=== PATIENT | female | born 1970 | race Caucasian/White ===

== ENCOUNTER 2016-04-08 06:40 | Day surgery (SDC) | payer BC ==
[2016-04-08] MEDS ORDERED: Cyanocobalamin (Vitamin B12) 1,000 MCG/ML SDV IM ONE (07:15)
[2016-04-08] MEDS ORDERED: Lactated Ringers 1,000 ML IV SCH (07:15)
[2016-04-08] MEDS ORDERED: fentaNYL 100 MCG/2 ML SDV ONE (07:24)
[2016-04-08] MEDS ORDERED: Propofol 200 MG/20 ML SDV ONE (07:24)
[2016-04-08] MEDS ORDERED: Midazolam 1 MG/ML 2 ML SDV ONE (07:24)
[2016-04-08] MEDS ORDERED: Glycopyrrolate 0.2 MG/ML 2 ML SYRINGE IVPUSH ONE (07:30)
[2016-04-08] MEDS ORDERED: MVI, Adult with Vitamin K 10 ML, Thiamine 200 MG, Chromium/Copper/Mang/Selen/Zn 1 ML in... IV ONE ×4 (08:15)
[2016-04-08] MEDS ORDERED: Scopolamine 1.5 MG Transdermal Patch TOP SCH (08:25)
[2016-04-08 10:37] VITALS: BP 132/82
--- NOTE | 2016-04-16 09:35 | OR ---
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 POSTOPERATIVE DIAGNOSIS: Moderate stricture at gastrojejunostomy. OPERATIVE PROCEDURE: Upper gastrointestinal endoscopy with dilation gastrojejunostomy (60368). ANESTHESIA: IV sedation. INDICATION FOR PROCEDURE: The patient has developed recurrent problem of stricturing at her gastrojejunostomy, status post revision of Ky-en-Y gastric bypass. Plan is to proceed with upper GI endoscopy with dilation as indicated. Potential risks including bleeding and perforation were discussed, and the patient wishes to proceed. DETAILS OF PROCEDURE: The patient was taken to the operating room and placed in a left lateral decubitus position. IV sedation was administered, after which the upper GI endoscope was passed orally through the length of the esophagus and into the gastric pouch. No retained food or fluid was noted. The patient was noted to have moderate stricturing of the gastrojejunostomy with estimated diameter around 9 mm. There was a degree of inflammation noted. There was only a small area that has fibrinous exudate on its surface within the area of the gastrojejunostomy. A Bard gastrointestinal balloon catheter was centered across the anastomosis and inflated to 36-Serbian size. This was held in position for 1 minute, after which the balloon catheter was deflated and withdrawn. The scope could easily then be passed through the anastomosis. No complications were noted and the procedure was concluded. The patient was taken to the recovery room in satisfactory condition. Tim Carroll MD /[id number]
== END 2016-04-08 11:10 | disposition home or self-care (01) ==
LOC: JP.SDS 06:40
PROVIDERS: ATTEND Surgery
DX: K91.89 Other postprocedural complications and disorders of digestive system (principal); Z88.1 Allergy status to other antibiotic agents; Z88.8 Allergy status to other drugs, medicaments and biological substances
CPT/HCPCS: 36415; 43245; 80048; 82728; 83735; 84100; A9270; J2250; J2704; J3010; J3411; J3420; J7120

== ENCOUNTER → 2016-04-15 | Day surgery (SDC) | payer BC ==
[~2016-04-15] MED LIST: Bupivacaine 0.5% 50 ML MDV ONE; Cyanocobalamin (Vitamin B12) 1,000 MCG/ML SDV IM ONE; Glycopyrrolate 0.2 MG/ML 2 ML SYRINGE IVPUSH ONE; LORazepam 0.5 MG Tab PO ONE; Lactated Ringers 1,000 ML IV SCH; Lidocaine 1% with EPINEPHrine 1:100,000 50 ML MDV ONE; MVI, Adult with Vitamin K 10 ML, Thiamine 200 MG, Chromium/Copper/Mang/Selen/Zn 1 ML in... IV ONE; Midazolam 1 MG/ML 2 ML SDV ONE; Propofol 200 MG/20 ML SDV ONE; fentaNYL 100 MCG/2 ML SDV ONE
[2016-04-15 12:17] VITALS: BP 137/69
--- NOTE | 2016-04-19 11:14 | OR ---
DATE OF PROCEDURE: 04/15/2016 PREOPERATIVE DIAGNOSIS: Probable strictured gastrojejunostomy. POSTOPERATIVE DIAGNOSES: 1. Probable strictured gastrojejunostomy. 2. Limited peripheral venous access. OPERATIVE PROCEDURE: 1. Upper GI endoscopy with dilation of gastrojejunostomy (76047). 2. Placement of double-lumen Rivera catheter via left subclavian vein approach (85522). ANESTHESIA: Local plus IV sedation. INDICATION FOR PROCEDURE: This is a 45-year-old who has been afflicted with multiple strictures following the gastrojejunostomy. Plan is to proceed with the upper GI endoscopy with dilation as indicated. She is also at this point having very difficult problems with peripheral venous access. A Rivera catheter will be placed. Potential risks including bleeding, infection, perforation of the dilation site with no pneumothorax or occlusion or infection the Rivera catheter were all gone over, and the patient wishes to proceed. DETAILS OF PROCEDURE: The patient was taken to the operating room and placed in a supine position. After IV sedation was administered, the upper chest and neck areas were prepped and draped, and the left subclavian vein area anesthetized with 1% lidocaine, mixed with Marcaine. The left subclavian vein was cannulated, and a guidewire passed and manipulated into the superior vena cava. Some additional local anesthetic was then injected a handsbreadth below the original puncture site and in between those two levels. A stab wound was then placed at the puncture site as well as the lower end of the anesthetized area and the chest wall, and a Rivera catheter was then tunneled between those 2 locations and introduced a peel-away catheter. The Rivera catheter was placed after it had been measured such that it would lie in the area of the right atrium. This was positioned without difficulty. Good location was confirmed fluoroscopically. The catheter was sutured to the skin level with 3-0 nylon stitch. Position of the fibrous button just inside the skin puncture site and the regional needle puncture site was closed with a subcuticular 4-0 Vicryl stitch, and a Steri-Strip was applied there. Dressing was then placed over the Rivera catheter after the ports had been flushed once again with heparinized saline. Attention was taken to the upper GI endoscopy. The upper GI endoscope was passed orally through the length of the esophagus and down into the area of the gastrojejunostomy. This was mildly strictured. A Bard gastrointestinal catheter was then centered across the anastomosis and inflated to 36-Sinhala size. This was held in position for 1 minute after which the balloon catheter was deflated and withdrawn, and the procedure was then concluded. The patient was taken to the recovery room in satisfactory condition. The patient continues to have problems with nausea, but on Friday, she was started on some Ativan 1 mg to be taken q.i.d. This has helped nausea quite a bit, but she is feeling a little bit too sleepy, and given this, we will have her split the dose to 0.5 and see if that controls the nausea without the sedation. The plan will be to see the patient back this coming Friday and most likely proceed with upper GI endoscopy and dilation. At that time, as I will be out of town for subsequent 8 or 9 days after that. Tim Carroll MD /[id number]
== END ==
LOC: JP.SDS 07:37
PROVIDERS: ATTEND Surgery
DX: K91.89 Other postprocedural complications and disorders of digestive system (principal)
CPT/HCPCS: 36558; 43245; A9270; J1642; J2250; J2704; J3010; J3411; J3420; J7120

== ENCOUNTER 2016-04-20 06:27 | Day surgery (SDC) | payer BC ==
[2016-04-20] MEDS ORDERED: fentaNYL 100 MCG/2 ML SDV ONE (07:29)
[2016-04-20] MEDS ORDERED: Midazolam 1 MG/ML 2 ML SDV ONE (07:29)
[2016-04-20] MEDS ORDERED: Propofol 200 MG/20 ML SDV ONE (07:29)
[2016-04-20] MEDS ORDERED: Lactated Ringers 1,000 ML IV SCH (07:30)
[2016-04-20] MEDS ORDERED: Cyanocobalamin (Vitamin B12) 1,000 MCG/ML SDV IM ONE (07:30)
[2016-04-20] MEDS ORDERED: Glycopyrrolate 0.2 MG/ML 2 ML SYRINGE IVPUSH ONE (07:45)
[2016-04-20] MEDS ORDERED: MVI, Adult with Vitamin K 10 ML, Thiamine 200 MG, Chromium/Copper/Mang/Selen/Zn 1 ML in... IV ONE ×4 (09:00)
[2016-04-20 09:11] VITALS: BP 158/89
[2016-04-20] MEDS: Sodium Chloride 0.9% 10 ML Syringe FLUSH PRN ×2 (09:14→09:16)
--- NOTE | 2016-04-22 09:12 | OR ---
DATE OF PROCEDURE: 04/20/2016 PREOPERATIVE DIAGNOSIS: Probable stricture at gastrojejunostomy. POSTOPERATIVE DIAGNOSIS: Stricture at gastrojejunostomy. OPERATIVE PROCEDURE: Upper GI endoscopy with dilation of gastrojejunostomy (30162). ANESTHESIA: IV sedation. INDICATION FOR PROCEDURE: This is a 45-year-old presenting with ongoing stricturing at her gastrojejunostomy. Plan is to proceed with upper GI endoscopy with dilation as indicated. Potential risks including bleeding and perforation were discussed, and the patient wishes to proceed. DETAILS OF PROCEDURE: The patient was taken to the operating room and placed in a left lateral decubitus position. IV sedation was administered after which the upper GI endoscope was passed orally through the length of the esophagus and into the area of the anastomosis. The area was strictured enough that the 1 cm scope would not quite pass through the area. A Bard gastrointestinal balloon catheter was centered across the anastomosis and inflated to 36-Burundian size, was held in position for 1 minute, after which the balloon catheter was deflated and withdrawn. The scope could easily then be passed through the anastomosis. No complications were noted and the procedure was concluded. The patient was taken to the recovery room in satisfactory condition. Tim Carroll MD /[id number]
== END 2016-04-20 09:25 | disposition home or self-care (01) ==
LOC: JP.SDS 06:27
PROVIDERS: ATTEND Surgery
DX: K91.89 Other postprocedural complications and disorders of digestive system (principal); Z88.1 Allergy status to other antibiotic agents; Z88.8 Allergy status to other drugs, medicaments and biological substances
CPT/HCPCS: 43245; J1642; J2250; J2704; J3010; J3411; J3420; J7050; J7120

== ENCOUNTER 2016-04-29 10:50 | Day surgery (SDC) | payer BC ==
[2016-04-29] MEDS ORDERED: Heparin Sodium 5,000 Units/ML Vial IVPUSH PRN (11:14)
[2016-04-29] MEDS ORDERED: Lactated Ringers 1,000 ML IV ONE (11:15)
[2016-04-29] MEDS ORDERED: Midazolam 1 MG/ML 2 ML SDV ONE (11:46)
[2016-04-29] MEDS ORDERED: fentaNYL 100 MCG/2 ML SDV ONE (11:46)
[2016-04-29] MEDS ORDERED: Propofol 200 MG/20 ML SDV ONE (11:46)
[2016-04-29] MEDS ORDERED: Glycopyrrolate 0.2 MG/ML 2 ML SYRINGE IVPUSH ONE (12:00)
[2016-04-29] MEDS ORDERED: Cyanocobalamin (Vitamin B12) 1,000 MCG/ML SDV IM ONE (12:00)
[2016-04-29] MEDS ORDERED: Prochlorperazine 10 MG/2 ML SDV IVPUSH ONE (12:00)
[2016-04-29] MEDS ORDERED: MVI, Adult with Vitamin K 10 ML, Thiamine 200 MG, Chromium/Copper/Mang/Selen/Zn 1 ML in... IV ONE ×4 (12:30)
[2016-04-29] MEDS: Potassium Chloride 20 MEQ in Premix Bag 1 BAG IV SCH ×4 (12:41→16:01)
[2016-04-29 17:35] VITALS: BP 138/74
[2016-04-29] MEDS ORDERED: Potassium Phosphates 20 MMOLE in Sodium Chloride 0.9% 250 ML IV ONE (18:45)
--- NOTE | 2016-05-03 08:00 | OR ---
DATE OF PROCEDURE: 04/29/2016 PREOPERATIVE DIAGNOSIS: Probable stricture of gastrojejunostomy. POSTOPERATIVE DIAGNOSIS: Moderate stricture of gastrojejunostomy with progressively decreased inflammation. OPERATIVE PROCEDURE: Upper GI endoscopy with dilation of gastrojejunostomy (89061). ANESTHESIA: IV sedation. INDICATION FOR PROCEDURE: The patient had some persistent problems with stricturing at her gastrojejunostomy post high gastrectomy. Plan is to proceed with an upper GI endoscopy with dilation as indicated. Potential risks including bleeding and perforation were discussed, and the patient wishes to proceed. DETAILS OF PROCEDURE: The patient was taken to the operating room and placed in a left lateral decubitus position. IV sedation was administered, after which the upper GI endoscope was passed orally through the length of the esophagus and into the area of the gastrojejunostomy. This was noted to be narrowed enough that the scope could quite not be passed through the anastomosis. There was quite a bit less inflammation than we had seen previously. A Bard gastrointestinal balloon catheter was then centered across the anastomosis with fluoroscopic surveillance, inflated to 36-Cameroonian size, held in position for 1 minute, after which the balloon catheter was deflated and withdrawn. The scope could easily then be passed through the anastomosis. No complications were noted. The scope was withdrawn. The patient was taken to the recovery room in satisfactory condition. The patient's potassium and phosphate are both noted to be quite low today and she will be given a combination of KCl and K-Phos postoperatively to restore those levels. We will empirically set her up for next Friday for repeat endoscopy to stay ahead of the issue as well as rechecking labs at that time. Tim Carroll MD /[id number]
== END 2016-04-29 21:14 | disposition home or self-care (01) ==
LOC: JP.SDS 10:50
PROVIDERS: ATTEND Surgery
DX: K91.89 Other postprocedural complications and disorders of digestive system (principal); G47.33 Obstructive sleep apnea (adult) (pediatric); Z88.1 Allergy status to other antibiotic agents; Z88.8 Allergy status to other drugs, medicaments and biological substances
CPT/HCPCS: 36415; 43245; 80053; 83735; 84100; 85027; J0780; J1642; J2250; J2704; J3010; J3411; J3420; J3480; J7050; J7120; J3490

== ENCOUNTER 2016-05-08 06:25 | Day surgery (SDC) | payer BC ==
[2016-05-08] MEDS ORDERED: Cyanocobalamin (Vitamin B12) 1,000 MCG/ML SDV IM ONE (07:30)
[2016-05-08] MEDS ORDERED: Lactated Ringers 1,000 ML IV SCH (07:30)
[2016-05-08] MEDS ORDERED: Glycopyrrolate 0.2 MG/ML 2 ML SYRINGE IVPUSH ONE (07:30)
[2016-05-08] MEDS ORDERED: MVI, Adult with Vitamin K 10 ML, Thiamine 200 MG, Chromium/Copper/Mang/Selen/Zn 1 ML in... IV ONE ×4 (07:30)
[2016-05-08] MEDS ORDERED: Propofol 200 MG/20 ML SDV ONE (07:52)
[2016-05-08] MEDS: Sodium Chloride 0.9% 10 ML Syringe FLUSH PRN ×2 (07:52→09:49)
[2016-05-08] MEDS ORDERED: Midazolam 1 MG/ML 2 ML SDV ONE (07:53)
[2016-05-08] MEDS ORDERED: fentaNYL 100 MCG/2 ML SDV ONE (07:53)
[2016-05-08 09:46] VITALS: BP 147/80
--- NOTE | 2016-05-09 17:37 | OR ---
DATE OF PROCEDURE: 05/08/2016 PREOPERATIVE DIAGNOSIS: Probable stricturing at the gastrojejunostomy. POSTOPERATIVE DIAGNOSIS: Moderate stricture gastrojejunostomy. OPERATIVE PROCEDURE: Upper gastrointestinal endoscopy with dilation gastrojejunostomy (49133). ANESTHESIA: IV sedation. INDICATION FOR PROCEDURE: The patient presents once again with symptoms suggestive of stricturing at her gastrojejunostomy. Plan is to proceed with upper GI endoscopy with dilation as indicated. Potential risks including bleeding and perforation were discussed, and the patient wishes to proceed. DETAILS OF PROCEDURE: The patient was taken to the operating room and placed in a left lateral decubitus position. IV sedation was administered, after which the upper GI endoscope was passed orally through the esophagus and into the gastric pouch. No retained food or fluid was noted. The patient noted to have some recurring stricturing at the gastrojejunostomy. This was without much in way of gross inflammation, however, at this point initially a 36-Albanian balloon catheter placed across the anastomosis. This resulted in some modest improvement in the diameter. Given this, the scope now comfortably passed into the jejunum. A 45-Albanian balloon was inflated to level one and this was 30 PSI and held in this position for one minute as well. This did result in a significantly improved diameter, and the scope was then withdrawn and the above findings reconfirmed. No evident complications were noted. We will empirically schedule the patient next Friday for repeat dilation just to see if we can stay out of the situation at this time. Tim Carroll MD /[id number]
== END 2016-05-08 10:00 | disposition home or self-care (01) ==
LOC: JP.SDS 06:25
PROVIDERS: ATTEND Surgery
DX: K91.89 Other postprocedural complications and disorders of digestive system (principal); K21.9 Gastro-esophageal reflux disease without esophagitis; F32.9 Major depressive disorder, single episode, unspecified; E66.9 Obesity, unspecified; G47.33 Obstructive sleep apnea (adult) (pediatric); Z88.1 Allergy status to other antibiotic agents; Z88.8 Allergy status to other drugs, medicaments and biological substances
CPT/HCPCS: 36415; 43245; 80048; 83735; 84100; J1642; J2250; J2704; J3010; J3411; J3420; J7050; J7120

== ENCOUNTER 2016-05-13 06:53 | Day surgery (SDC) | payer BC ==
[2016-05-13] MEDS ORDERED: Prochlorperazine 10 MG/2 ML SDV IVPUSH ONE (07:12)
[2016-05-13] MEDS ORDERED: Midazolam 1 MG/ML 2 ML SDV ONE (07:23)
[2016-05-13] MEDS ORDERED: Propofol 200 MG/20 ML SDV ONE (07:23)
[2016-05-13] MEDS ORDERED: fentaNYL 100 MCG/2 ML SDV ONE (07:23)
[2016-05-13] MEDS ORDERED: Lactated Ringers 1,000 ML IV SCH (07:30)
[2016-05-13] MEDS: Potassium Acetate 20 MEQ, Lidocaine 1% 2 ML in Sodium Chloride 0.9% 100 ML IV SCH ×3 (07:46→12:23)
[2016-05-13] MEDS ORDERED: Cyanocobalamin (Vitamin B12) 1,000 MCG/ML SDV IM ONE (08:00)
[2016-05-13] MEDS ORDERED: Glycopyrrolate 0.2 MG/ML 2 ML SYRINGE IVPUSH ONE (08:15)
[2016-05-13] MEDS ORDERED: MVI, Adult with Vitamin K 10 ML, Thiamine 200 MG, Chromium/Copper/Mang/Selen/Zn 1 ML in... IV ONE ×8 (08:30→10:00)
[2016-05-13 14:31] VITALS: BP 119/66
--- NOTE | 2016-05-16 13:05 | OR ---
DATE OF PROCEDURE: 05/13/2016 PREOPERATIVE DIAGNOSIS: Probable stricturing at gastrojejunostomy. POSTOPERATIVE DIAGNOSIS: Mild strictured gastrojejunostomy. OPERATIVE PROCEDURE: Upper GI endoscopy with dilation of gastrojejunostomy (49600). ANESTHESIA: IV sedation. INDICATIONS: The patient presents once again with some symptoms of stricturing at her gastrojejunostomy. Plan is to proceed with an upper GI endoscopy with dilation as indicated. Potential risks including bleeding and perforation were discussed, and the patient wishes to proceed. DETAILS OF PROCEDURE: The patient was taken to the operating room and placed in a left lateral decubitus position. IV sedation was administered, after which the upper GI endoscope was passed orally through the length of the esophagus into the gastric pouch. The patient had noted minimal inflammation at the gastrojejunostomy, and at this time, the scope could be passed through that area with minimal resistance, indicating an anastomotic diameter around 1 cm. A ItsOn gastrointestinal balloon catheter was then centered across the anastomosis and inflated to 45-Lithuanian size. This was brought up to a stage III level, i.e., 60 psi and held in position for 1 minute. The balloon catheter was then deflated and withdrawn. The scope was then used to re-examine the anastomosis. A very satisfactory dilation without complications was evident, and the procedure then concluded. The scope was then withdrawn. The patient was taken to the recovery room in satisfactory condition. The patient continues to have a low potassium and based on electrolyte profile, should be given 60 mEq of K acetate today in order to stay out of this case, which has been quite chronic and recurrent stricture formation. We will proceed with an upper endoscopy with dilation as indicated next Friday and recheck of electrolytes at that time as well. Tim Carroll MD /[id number]
== END 2016-05-13 14:43 | disposition home or self-care (01) ==
LOC: JP.SDS 06:53
PROVIDERS: ATTEND Surgery
DX: K31.89 Other diseases of stomach and duodenum (principal); K21.9 Gastro-esophageal reflux disease without esophagitis; G47.33 Obstructive sleep apnea (adult) (pediatric); E66.9 Obesity, unspecified; F32.9 Major depressive disorder, single episode, unspecified; Z88.1 Allergy status to other antibiotic agents; Z88.8 Allergy status to other drugs, medicaments and biological substances
CPT/HCPCS: 36415; 43245; 80048; 83735; 84100; J0780; J1642; J2250; J2704; J3010; J3411; J3420; J7030; J7120; J3490

== ENCOUNTER 2016-05-20 07:00 | Day surgery (SDC) | payer BC ==
[2016-05-20] MEDS: Lactated Ringers 1,000 ML IV SCH ×2 (07:28→10:18)
[2016-05-20] MEDS: Sodium Chloride 0.9% 10 ML Syringe IV PRN ×3 (07:28→16:09)
[2016-05-20] MEDS ORDERED: Cyanocobalamin (Vitamin B12) 1,000 MCG/ML SDV IM ONE (08:00)
[2016-05-20] MEDS ORDERED: Glycopyrrolate 0.2 MG/ML 2 ML SYRINGE IVPUSH ONE (08:00)
[2016-05-20] MEDS ORDERED: Propofol 200 MG/20 ML SDV ONE (08:13)
[2016-05-20] MEDS ORDERED: fentaNYL 100 MCG/2 ML SDV ONE (08:13)
[2016-05-20] MEDS ORDERED: Midazolam 1 MG/ML 2 ML SDV ONE (08:13)
[2016-05-20] MEDS ORDERED: MVI, Adult with Vitamin K 10 ML, Thiamine 200 MG, Chromium/Copper/Mang/Selen/Zn 1 ML in... IV ONE ×4 (08:30)
[2016-05-20] MEDS ORDERED: Potassium Chloride 40 MEQ in Premix Bag 1 BAG IV ONE (09:17)
[2016-05-20] MEDS: Potassium Chloride 20 MEQ in Premix Bag 1 BAG IV SCH ×3 (09:59→13:54)
[2016-05-20 16:36] VITALS: BP 130/58
--- NOTE | 2016-05-22 14:41 | OR ---
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 OPERATIVE PROCEDURE: Upper gastrointestinal endoscopy with dilation gastrojejunostomy (80848). ANESTHESIA: IV sedation. INDICATION FOR PROCEDURE: The patient presents with some recurrent symptoms of stricturing at her gastrojejunostomy. Plan is to proceed with upper GI endoscopy with dilation as indicated. Potential risks of the procedure including bleeding and perforation were reviewed, and the patient wishes to proceed. DETAILS OF PROCEDURE: The patient was taken to the operating room and placed in a left lateral decubitus position. IV sedation was administered, after which the upper GI endoscope was passed orally through the length of the esophagus and into the area of the stricture. This was noted to be the 1 cm scope could be passed through. A Bard gastrointestinal balloon catheter was then centered across the anastomosis and inflated to 45-Moldovan size, solid in position for 1 minute, after which the balloon catheter was deflated and withdrawn. The scope was easily then be passed through the anastomosis. No complications were noted and the procedure then concluded. The patient's potassium was once again low today. We will give her some IV potassium prior to discharge and she will be following up with [facility] next week. One option would be thereafter placing the stent for perhaps three weeks, which would likely keep things open. Tim Carroll MD /[id number]
== END 2016-05-20 16:10 | disposition home or self-care (01) ==
LOC: JP.SDS 07:00
PROVIDERS: ATTEND Surgery
PROC: 0D778ZZ Dilation of Stomach, Pylorus, Via Natural or Artificial Opening Endoscopic (ICD-10-PCS; principal; 2016-05-20)
DX: K91.89 Other postprocedural complications and disorders of digestive system (principal); R13.10 Dysphagia, unspecified
CPT/HCPCS: 36415; 43245; 80048; 83735; 84100; J1642; J2250; J2704; J3010; J3411; J3420; J3480; J7050; J7120

== ENCOUNTER 2016-06-18 08:15 | Day surgery (SDC) | payer BC ==
[~2016-06-18 08:15] MED LIST changes: -Bupivacaine 0.5% 50 ML MDV ONE; -Cyanocobalamin (Vitamin B12) 1,000 MCG/ML SDV IM ONE; -Glycopyrrolate 0.2 MG/ML 2 ML SYRINGE IVPUSH ONE; -LORazepam 0.5 MG Tab PO ONE; -Lactated Ringers 1,000 ML IV SCH; -Lidocaine 1% with EPINEPHrine 1:100,000 50 ML MDV ONE; -MVI, Adult with Vitamin K 10 ML, Thiamine 200 MG, Chromium/Copper/Mang/Selen/Zn 1 ML in... IV ONE
[2016-06-18] MEDS ORDERED: Dextrose 5%-Lactated Ringers 1,000 ML IV SCH (08:45)
[2016-06-18] MEDS ORDERED: Prochlorperazine 10 MG in Sodium Chloride 0.9% 50 ML IV ONE (09:00)
[2016-06-18] MEDS ORDERED: Succinylcholine/Normal Saline 200 MG/10 ML Syringe ONE (09:14)
[2016-06-18] MEDS ORDERED: Ondansetron 4 MG/2 ML SDV ONE (09:14)
[2016-06-18] MEDS ORDERED: Neostigmine Methylsulfate 1 MG/ML 5 ML Syringe ONE (09:14)
[2016-06-18] MEDS ORDERED: Rocuronium 50 MG/5 ML Vial ONE (09:14)
[2016-06-18] MEDS ORDERED: Dexamethasone 4 MG/ML SDV ONE (09:14)
[2016-06-18] MEDS ORDERED: SODIUM CHLORIDE 0.9% IV ONE (10:00)
[2016-06-18] MEDS ORDERED: POTASSIUM CHLORIDE IV ONE (10:00)
[2016-06-18] MEDS ORDERED: Propofol 200 MG/20 ML SDV ONE ×2 (10:19→10:20)
[2016-06-18] MEDS ORDERED: MVI, Adult with Vitamin K 10 ML, Thiamine 200 MG, Chromium/Copper/Mang/Selen/Zn 1 ML in... IV ONE ×4 (11:00)
[2016-06-18] MEDS ORDERED: Potassium Phosphates 20 MMOLE in Sodium Chloride 0.9% 150 ML IV ONE (13:00)
[2016-06-18 15:52] VITALS: BP 129/64
[2016-06-18] MEDS ORDERED: SODIUM CHLORIDE IV ONE (16:00)
[2016-06-18] MEDS ORDERED: POTASSIUM PHOSPHATES IV ONE (16:00)
--- NOTE | 2016-06-24 16:09 | OR ---
DATE OF PROCEDURE: 06/18/2016 PREOPERATIVE DIAGNOSIS: Status post esophagojejunal stent placement. POSTOPERATIVE DIAGNOSES: 1. Esophagojejunal stent placement with occlusion of gastrointestinal lumen. 2. Abraded esophageal mucosal tissue. OPERATIVE PROCEDURE: Upper GI endoscopy with: 1. Removal of esophagojejunal stent (11793). 2. Endoscopic mucosal resection of abraded esophageal mucosa (13162). ANESTHESIA: IV sedation. INDICATION FOR PROCEDURE: This is a 45-year-old female with recurrent strictures at esophagojejunal anastomosis. The plan is to proceed with an upper GI endoscopy with removal of a stent that had been placed at [facility]. This has been done about 10 days ago and the patient wishes to have it removed at this time. Potential risks including bleeding, infection, injury to the esophageal mucosa, or adjacent jejunum were reviewed as well as possibility of recurrent stricturing following removal and the patient wishes to proceed. DESCRIPTION OF PROCEDURE: The patient was taken to the operating room and placed in a left lateral decubitus position. IV sedation was administered, after which the upper GI endoscope was passed orally through the length of the esophagus. At the esophagojejunal level, a short roughly 3 cm stent was identified. This was grasped with the endoscopic rat- tooth forceps and then retrieved through the remainder of the esophagus and out via mouth in an intact manner. There did appear to have been some significant disruption of the esophageal mucosal tissue prior to the removal, which was prolapsing more or less into the lumen of the stent that had been tilted somewhat sideways causing an occlusion. The scope was reintroduced and that mucosa which was minimally attached was resected by endoscopic scissors. Minimal bleeding was noted. There did not appear to be any area suggestive of full-thickness perforation. The patient will be kept on more of a liquid diet over the next 2 to 3 days than usual i.e., nothing thicker than water consistency, and we will see the patient back next week. The patient was taken to the recovery room in satisfactory condition. Tim Carroll MD /[id number]
== END 2016-06-18 19:31 | disposition home or self-care (01) ==
LOC: JP.SDS 08:15
PROVIDERS: ATTEND Surgery
DX: K22.8 Other specified diseases of esophagus (principal); G47.33 Obstructive sleep apnea (adult) (pediatric); Z95.5 Presence of coronary angioplasty implant and graft; Z88.8 Allergy status to other drugs, medicaments and biological substances; E66.9 Obesity, unspecified; F32.9 Major depressive disorder, single episode, unspecified; Z98.84 Bariatric surgery status; Z90.49 Acquired absence of other specified parts of digestive tract; Z90.3 Acquired absence of stomach [part of]; Z90.710 Acquired absence of both cervix and uterus; Z98.890 Other specified postprocedural states; Z88.1 Allergy status to other antibiotic agents; Z79.899 Other long term (current) drug therapy; E87.6 Hypokalemia
CPT/HCPCS: 36415; 43247; 43254; 80053; 83735; 84100; 85027; 88300; 88305; J0780; J1642; J2250; J2704; J3010; J3411; J3480; J7030; J7040; J7042; J7050; J7120; J1100; J2405; J3490

== ENCOUNTER 2016-07-06 05:56 | Day surgery (SDC) | payer BC ==
[2016-07-06] MEDS ORDERED: Lactated Ringers 1,000 ML IV ONE (06:30)
[2016-07-06] MEDS ORDERED: Glycopyrrolate 0.2 MG/ML 2 ML SYRINGE IVPUSH ONE (07:00)
[2016-07-06] MEDS ORDERED: Cyanocobalamin (Vitamin B12) 1,000 MCG/ML SDV IM ONE ×2 (07:00→10:00)
[2016-07-06] MEDS ORDERED: Propofol 200 MG/20 ML SDV ONE (07:08)
[2016-07-06] MEDS ORDERED: Midazolam 1 MG/ML 2 ML SDV ONE (07:08)
[2016-07-06] MEDS ORDERED: fentaNYL 100 MCG/2 ML SDV ONE (07:08)
[2016-07-06] MEDS ORDERED: Lactated Ringers 1,000 ML ONE (07:30)
[2016-07-06] MEDS ORDERED: MVI, Adult with Vitamin K 10 ML, Chromium/Copper/Mang/Selen/Zn 1 ML, Thiamine 200 MG in... IV ONE ×4 (07:45)
[2016-07-06 09:59] VITALS: BP 137/76
--- NOTE | 2016-07-14 11:22 | OR ---
DATE OF PROCEDURE: 07/06/2016 PREOPERATIVE DIAGNOSIS: Probable strictured esophagojejunostomy. POSTOPERATIVE DIAGNOSIS: Moderate stricture at esophagojejunostomy. OPERATIVE PROCEDURE: Upper GI endoscopy with dilation of esophagojejunostomy (72658). ANESTHESIA: IV sedation. INDICATION FOR PROCEDURE: This is a 45-year-old female presenting with some ongoing problems with stricturing in her esophagojejunostomy. Plan is proceed with upper GI endoscopy with dilation as indicated. Potential risks including bleeding and perforation were discussed, and the patient wishes to proceed. DETAILS OF PROCEDURE: The patient was taken to the operating room and placed in the left lateral decubitus position. IV sedation was administered, after which the upper GI endoscope was passed orally through the length of the esophagus at the esophagojejunostomy. The patient was noted to have a moderate stricture. The scope could not quite be passed through the anastomosis, so the diameter was around 9 mm. A Bard gastrointestinal balloon catheter was centered across the anastomosis inflated to 45-Kazakh size, was held in position for 1 minute, after which the balloon catheter was deflated and withdrawn and the procedure then concluded. The patient recently had a stent placed and subsequently removed. This is the longest time she has gone between dilations and this was only mildly strictured anastomosis at this time. Given this, at this point we will hold off replacing the stent and we will see her back next week, and thereafter as needed for additional dilations. Tim Carroll MD /[id number]
== END 2016-07-06 11:16 | disposition home or self-care (01) ==
LOC: JP.SDS 05:56
PROVIDERS: ATTEND Surgery
DX: K91.89 Other postprocedural complications and disorders of digestive system (principal); Z88.1 Allergy status to other antibiotic agents; Z88.8 Allergy status to other drugs, medicaments and biological substances
CPT/HCPCS: 43249; J1642; J2250; J2704; J3010; J3411; J3420; J7120

== ENCOUNTER 2016-07-18 06:32 | Day surgery (SDC) | payer BC ==
[2016-07-18] MEDS: Potassium Chloride 20 MEQ, Lidocaine 1% 2 ML in Sodium Chloride 0.9% 100 ML IV SCH ×3 (07:00→11:10)
[2016-07-18] MEDS ORDERED: Propofol 200 MG/20 ML SDV ONE (07:41)
[2016-07-18] MEDS ORDERED: Midazolam 1 MG/ML 2 ML SDV ONE (07:41)
[2016-07-18] MEDS ORDERED: fentaNYL 100 MCG/2 ML SDV ONE (07:41)
[2016-07-18] MEDS ORDERED: Lactated Ringers 1,000 ML IV SCH (07:45)
[2016-07-18] MEDS ORDERED: Potassium Chloride 40 MEQ/20 ML SDV IV ONE (07:45)
[2016-07-18] MEDS ORDERED: Glycopyrrolate 0.2 MG/ML 2 ML SYRINGE IVPUSH ONE (08:15)
[2016-07-18] MEDS ORDERED: Cyanocobalamin (Vitamin B12) 1,000 MCG/ML SDV IM ONE (08:15)
[2016-07-18] MEDS ORDERED: Potassium Chloride 20 MEQ, Lidocaine 1% 2 ML in Sodium Chloride 0.9% 100 ML IV SCH (09:00)
[2016-07-18] MEDS ORDERED: MVI, Adult with Vitamin K 10 ML, Thiamine 200 MG, Chromium/Copper/Mang/Selen/Zn 1 ML in... IV ONE ×4 (09:00)
[2016-07-18 13:19] VITALS: BP 138/78
--- NOTE | 2016-07-22 15:48 | OR ---
DATE OF PROCEDURE: 07/18/2016 PREOPERATIVE DIAGNOSIS: Probable stricture at esophagojejunostomy. POSTOPERATIVE DIAGNOSIS: Mild stricture at esophagojejunostomy. OPERATIVE PROCEDURE: Upper GI endoscopy with dilation of esophagojejunostomy (40452). ANESTHESIA: IV sedation. INDICATION FOR PROCEDURE: This is a 45-year-old female presenting with some recurrent stricturing at her esophagojejunostomy. Plan is to proceed with upper GI endoscopy with dilation as indicated. Potential risks including bleeding and perforation were discussed and the patient wishes to proceed. DETAILS OF PROCEDURE: The patient was taken to the operating room and placed in a left lateral decubitus position. IV sedation was administered, after which the upper GI endoscope was passed orally through length of the esophagus and to the level of esophagojejunostomy. There was a mild stricture present. The scope could not quite be passed through the anastomosis. Initially a 36 and then following that, a 45-Macedonian balloon dilator were placed, the latter being inflated to Step 1 i.e., 30 PSI. Upon removal of the second dilator, adequate dilation appeared to be present and no complications were noted. The patient was taken to the recovery room in satisfactory condition. Tim Carroll MD /[id number]
== END 2016-07-18 13:40 | disposition home or self-care (01) ==
LOC: JP.SDS 06:32
PROVIDERS: ATTEND Surgery
DX: K91.89 Other postprocedural complications and disorders of digestive system (principal); G47.33 Obstructive sleep apnea (adult) (pediatric); K21.9 Gastro-esophageal reflux disease without esophagitis; Z88.1 Allergy status to other antibiotic agents; Z88.8 Allergy status to other drugs, medicaments and biological substances
CPT/HCPCS: 43249; J1642; J2250; J2704; J3010; J3411; J3420; J3480; J7030; J7120

== ENCOUNTER 2016-08-16 05:58 | Day surgery (SDC) | payer BC ==
[2016-08-16] MEDS ORDERED: Glycopyrrolate 0.2 MG/ML 2 ML SYRINGE IVPUSH ONE (06:30)
[2016-08-16] MEDS ORDERED: Lactated Ringers 1,000 ML IV ONE (06:30)
[2016-08-16] MEDS ORDERED: Cyanocobalamin (Vitamin B12) 1,000 MCG/ML SDV IM ONE (06:30)
[2016-08-16] MEDS ORDERED: fentaNYL 100 MCG/2 ML SDV ONE (07:06)
[2016-08-16] MEDS ORDERED: Midazolam 1 MG/ML 2 ML SDV ONE (07:06)
[2016-08-16] MEDS ORDERED: Propofol 200 MG/20 ML SDV ONE ×2 (07:06→07:30)
[2016-08-16] MEDS ORDERED: MVI, Adult with Vitamin K 10 ML, Thiamine 200 MG, Chromium/Copper/Mang/Selen/Zn 1 ML in... IV ONE ×4 (07:30)
[2016-08-16 09:00] VITALS: BP 120/68
--- NOTE | 2016-08-23 11:12 | OR ---
DATE OF PROCEDURE: 08/16/2016 PREOPERATIVE DIAGNOSIS: Strictured esophagojejunostomy. POSTOPERATIVE DIAGNOSIS: Strictured esophagojejunostomy. OPERATIVE PROCEDURE: Upper GI endoscopy with dilation of esophagojejunostomy (87802). ANESTHESIA: IV sedation. INDICATION FOR PROCEDURE: This 46-year-old female is presenting with some repeat symptoms of stricturing at her esophagojejunostomy. Plan is to treat her with an upper GI endoscopy with dilation as indicated. Potential risks including bleeding and perforation were discussed, and the patient wishes to proceed. DESCRIPTION OF PROCEDURE: The patient was taken to the operating room and placed in a left lateral decubitus position. IV sedation was administered, after which the upper GI endoscope was passed orally through length of the esophagus and into the esophagojejunostomy. This was moderately tight at this point, not quite accepting the 1 cm scope through it. A Bard gastrointestinal balloon catheter was then centered across the anastomosis and inflated to 36-Lao size. This was held in position for 1 minute, after which the balloon catheter was deflated and withdrawn. The scope was easily then passed through the anastomosis. No complications were noted, and the patient tolerated the procedure well. Tim Carroll MD /[id number]
== END 2016-08-16 13:59 | disposition home or self-care (01) ==
LOC: JP.SDS 05:58
PROVIDERS: ATTEND Surgery
PROC: 0D758ZZ Dilation of Esophagus, Via Natural or Artificial Opening Endoscopic (ICD-10-PCS; principal; 2016-08-16)
DX: R13.10 Dysphagia, unspecified (principal); K94.33 Esophagostomy malfunction
CPT/HCPCS: 36415; 43249; 80053; 84100; 85027; J1642; J2250; J2704; J3010; J3411; J3420; J7030; J7120; J3490

== ENCOUNTER 2016-08-30 05:26 | Day surgery (SDC) | payer BC ==
[2016-08-30] MEDS ORDERED: Lactated Ringers 1,000 ML IV SCH (06:30)
[2016-08-30] MEDS ORDERED: Propofol 200 MG/20 ML SDV ONE (06:51)
[2016-08-30] MEDS ORDERED: fentaNYL 100 MCG/2 ML SDV ONE (06:51)
[2016-08-30] MEDS ORDERED: Midazolam 1 MG/ML 2 ML SDV ONE (06:52)
[2016-08-30] MEDS ORDERED: Cyanocobalamin (Vitamin B12) 1,000 MCG/ML SDV IM ONE (07:00)
[2016-08-30] MEDS ORDERED: Glycopyrrolate 0.2 MG/ML 2 ML SYRINGE IVPUSH ONE (07:15)
[2016-08-30] MEDS: Potassium Chloride 20 MEQ in Premix Bag 1 BAG IV SCH ×2 (07:54→09:55)
[2016-08-30] MEDS ORDERED: MVI, Adult with Vitamin K 10 ML, Thiamine 200 MG, Chromium/Copper/Mang/Selen/Zn 1 ML in... IV ONE ×4 (08:00)
[2016-08-30] MEDS: Potassium Phosphates 15 MMOLE in Sodium Chloride 0.9% 150 ML IV SCH ×2 (11:51→14:32)
[2016-08-30 13:23] VITALS: BP 154/75
--- NOTE | 2016-09-01 10:56 | OR ---
DATE OF PROCEDURE: 08/30/2016 PREOPERATIVE DIAGNOSIS: Probable strictured esophagojejunostomy. POSTOPERATIVE DIAGNOSIS: Strictured esophagojejunostomy. OPERATIVE PROCEDURE: Upper gastrointestinal endoscopy with dilation of esophagojejunostomy (14509). ANESTHESIA: IV sedation. INDICATION FOR PROCEDURE: The patient presents once again with symptoms suggestive of stricturing at her esophagojejunostomy. Plan is to proceed with upper GI endoscopy with dilation as indicated. Potential risks including bleeding and perforation were discussed, and the patient wishes to proceed. DETAILS OF PROCEDURE: The patient was taken to the operating room and placed in a left lateral decubitus position. IV sedation was administered, after which the upper GI endoscope was passed orally through the length of the esophagus. At the esophagojejunostomy, the patient was noted to have some narrowing with the scope not quite being able to be passed through that area. Initially, the stricture was dilated with a 36- Setswana balloon dilator. This then allowed the scope to traverse the anastomosis to obtain a somewhat wider lumen. A 40-Setswana balloon dilator was then placed. This was initially inflated at 30 PSI and then subsequently to 60 PSI of the latter being held in position for 1 minute. The balloon catheter was then deflated and withdrawn. No complications were noted and the patient was taken to the recovery room in satisfactory condition. Tim Carroll MD /[id number]
== END 2016-08-30 16:55 | disposition home or self-care (01) ==
LOC: JP.SDS 05:26
PROVIDERS: ATTEND Surgery
DX: K94.33 Esophagostomy malfunction (principal); K21.9 Gastro-esophageal reflux disease without esophagitis
CPT/HCPCS: 36415; 43249; 80048; 83735; 84100; J1642; J2250; J2704; J3010; J3411; J3420; J3480; J7040; J7120; J3490

== ENCOUNTER 2016-09-14 06:35 | Inpatient (IN) | payer BC ==
[2016-09-14] MEDS ORDERED: Propofol 200 MG/20 ML SDV ONE (06:40)
[2016-09-14] MEDS ORDERED: Lidocaine 1% 2 ML ONE (06:40)
[2016-09-14] MEDS ORDERED: fentaNYL 100 MCG/2 ML SDV ONE (06:40)
[2016-09-14] MEDS ORDERED: Midazolam 1 MG/ML 2 ML SDV ONE (06:40)
[2016-09-14] MEDS ORDERED: Ondansetron 4 MG/2 ML SDV ONE (06:40)
[2016-09-14] MEDS ORDERED: Scopolamine 1.5 MG Transdermal Patch TRDERM PRN (06:54)
[2016-09-14] MEDS: Lactated Ringers 1,000 ML IV ONE ×2 (07:25→10:36)
[2016-09-14] MEDS ORDERED: Labetalol 20 MG/4 ML Syringe ONE (08:25)
[2016-09-14] MEDS ORDERED: Glycopyrrolate 0.2 MG/ML 2 ML SDV IV ONE (08:30)
[2016-09-14] MEDS ORDERED: Cyanocobalamin (Vitamin B12) 1,000 MCG/ML SDV IM ONE ×2 (08:30→11:00)
[2016-09-14] MEDS ORDERED: LORazepam 2 MG/ML MDV IV PRN (08:52)
[2016-09-14] MEDS ORDERED: Prochlorperazine 10 MG/2 ML SDV IV ONE (09:00)
[2016-09-14] MEDS ORDERED: MVI, Adult with Vitamin K 10 ML, Chromium/Copper/Mang/Selen/Zn 1 ML, Thiamine 200 MG in... IV ONE ×4 (09:30)
[2016-09-14] MEDS ORDERED: ZOLMITRIPTAN 5 MG PO PRN (10:25)
[2016-09-14] MEDS: D5 1/2 NS w/ 20 mEq/L KCl 1,000 ML IV SCH ×2 (10:31→20:51)
[2016-09-14] MEDS: Carvedilol 6.25 MG Tab PO SCH ×2 (10:56→21:13)
[2016-09-14] MEDS: Sertraline 50 MG Tab PO SCH (10:56)
[2016-09-14] MEDS: Prochlorperazine 10 MG Tab PO PRN ×2 (11:06→15:51)
[2016-09-14] MEDS: LORazepam 2 MG/ML MDV IV PRN ×2 (11:08→17:12)
[2016-09-14] MEDS: VERIFY SCOP PATCH TOP SCH (12:19)
[2016-09-14] MEDS: Potassium Phosphates 20 MMOLE in Sodium Chloride 0.9% 250 ML IV SCH ×3 (12:19→18:49)
--- NOTE | 2016-09-14 16:57 | PCM.CONS ---
H&P History of Present Illness - General Date of Service: 09/14/16 Source of Information: Patient, RN History Limitations: Reports: Altered Mental Status (Sedated) - History of Present Illness Initial Comments - Free Text/Narative: Nasra was admitted this morning for EGD and had a esophageal stent placed. She is very lethargic postoperatively and does not contribute much to the history. I was asked to see her today regarding hypertension. She is able to tell me that her pain is fairly well-controlled. She does not complain of nausea or abdominal pain. She does not feel short of breath at this time and is not having any chest pain. She has not had any fever since admission. Blood pressure is significantly elevated immediately postop but seem to be slowly trending down since then. She did not get her blood pressure medication until 11 AM today. She reports her blood pressure is normally well controlled. She did receive a dose of labetalol in the immediate postop setting. - Related Data Allergies/Adverse Reactions: Allergies Allergy/AdvReac Type Severity Reaction Status Date / Time doxycycline Allergy Rash Verified 08/16/16 06:25 fentanyl AdvReac Change Verified 08/16/16 06:25 Mental Status metoclopramide [From Reglan] AdvReac Agitation Verified 08/16/16 06:25 ondansetron AdvReac Agitation Verified 08/16/16 06:25 Home Medications: Home Meds LORazepam [Ativan] 1 mg PO Q6HR PRN 04/28/14 [History] ZOLMitriptan [Zomig] 5 mg PO ASDIRECTED PRN 04/28/14 [History] Carvedilol [Coreg] 6.25 mg PO BIDMEALS #0 tablet 09/25/15 [Rx] Acetaminophen [Tylenol] 650 mg PO Q4H PRN #0 tablet 11/15/15 [Rx] Cyanocobalamin (Vitamin B-12) [Vitamin B-12] 1,000 mcg SL DAILY 12/06/15 [ History] Ergocalciferol (Vitamin D2) [Vitamin D2] 50,000 units PO Q30D 12/06/15 [History] Mupirocin Oint [Bactroban Oint] 1 applic TOP BID PRN 12/06/15 [History] Prochlorperazine Maleate [Compazine] 10 mg PO Q6H PRN 12/06/15 [History] Potassium Chloride [Klor-Con M20] 10 meq PO BID 03/11/16 [History] Sertraline [Zoloft] 50 mg PO DAILY 04/18/16 [History] Multivitamin with Minerals [Multiple Vitamin] 1 tab PO BID 06/17/16 [History] Past Medical History HEENT History: Reports: Impaired Vision, Otitis Media Other HEENT History: wears glasses Cardiovascular History: Reports: Arrhythmia, Hypertension, Syncope, Other (See Below) Other Cardiovascular History: stress test with some abnormalities so she did have and angiogram which patient states was normal Respiratory History: Reports: Bronchitis, Recurrent, Pneumonia, Recurrent, Sleep Apnea Gastrointestinal History: Reports: Cholelithiasis, Chronic Diarrhea, Colon Polyp , Gastritis, GERD, Hemorrhoids, Other (See Below) Other Gastrointestinal History: "enlarged liver" gastric stent placed 05/28/16 removed 06/18/16 Genitourinary History: Reports: None 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 History: Reports: Endometriosis, Musculoskeletal History: Reports: Back Pain, Chronic, Fibromyalgia, Osteoarthritis Neurological History: Reports: Migraines, Neuropathy, Peripheral Psychiatric History: Reports: Anxiety, Depression Endocrine/Metabolic History: Reports: Vitamin D Deficiency Hematologic History: Reports: B12 Deficiency, Blood Transfusion(s) Other Hematologic History: blood transfusion as an , vitamin d deficiency Immunologic History: Reports: None Oncologic (Cancer) History: Reports: None Dermatologic History: Reports: Psoriasis Other Dermatologic History: reocurring boil to chest,yeast infections at times - Infectious Disease History Infectious Disease History: Reports: Chicken Pox - Past Surgical History Head Surgeries/Procedures: Reports: None HEENT Surgical History: Reports: Oral Surgery Cardiovascular Surgical History: Reports: Other (See Below) Other Cardiovascular Surgeries/Procedures: angiogram Respiratory Surgical History: Reports: None GI Surgical History: Reports: Bariatric Procedure, Cholecystectomy, Colonoscopy , EGD, Esophageal Dilatation, Lysis of Adhesions, Polypectomy, Other (See Below) Other GI Surgeries/Procedures: Gastrectomy Female Surgical History: Reports: Section, Hysterectomy, Salpingo- Oophorectomy, Other (See Below) Other Female Surgeries/Procedures: boil right breast- has been treated for staph infection Endocrine Surgical History: Reports: None Neurological Surgical History: Reports: None Musculoskeletal Surgical History: Reports: None Oncologic Surgical History: Reports: None Dermatological Surgical History: Reports: None Social & Family History - Family History Family Medical History: Noncontributory GI: Reports: Pancreatitis OBGYN: Reports: Endometriosis, Fibroids Musculoskeletal: Reports: Osteoarthritis, Osteoporosis Psychiatric: Reports: Anxiety, Autism, Depression, Panic Attack Endocrine/Metabolic: Reports: Vitamin D Deficiency Dermatologic: Reports: Psoriasis Oncologic: Reports: Bone, Breast, Colon, Other (See Below) Other Oncologic Family History: kidney - Tobacco Use Smoking Status *Q: Former Smoker Years of Tobacco use: 20 Packs/Tins Daily: 0 Used Tobacco, but Quit: Yes Month Tobacco Last Used: 2015 Second Hand Smoke Exposure: No - Caffeine Use Caffeine Use: Reports: Coffee, Soda - Alcohol Use Days Per Week of Alcohol Use: 0 - Recreational Drug Use Recreational Drug Use: No H&P Review of Systems - Review of Systems: Review Of Systems: Unable To Obtain (Secondary to somnolence and sedation) Free Text/Narrative: Information I was able to gather from her is included in the history of present illness. Exam - Exam Exam: See Below - Vital Signs Vital Signs: Last Vital Signs Temp 37.1 C 09/14/16 15:45 Pulse 95 09/14/16 15:45 Resp 18 09/14/16 15:45 BP 166/103 H 09/14/16 15:45 Pulse Ox 95 09/14/16 15:45 Weight: 71.214 kg - Exam Quality Assessment: No: Supplemental Oxygen General: Alert, Cooperative, Sedated HEENT: Mucosa Moist & [place], Pupils Equal. No: Scleral Icterus Neck: Supple, Trachea Midline. No: Lymphadenopathy Lungs: Clear to Auscultation, Normal Respiratory Effort Cardiovascular: Regular Rate, Regular Rhythm. No: Systolic Murmur GI/Abdominal Exam: Normal Bowel Sounds, Soft, Non-Tender, No Distention Extremities: No Pedal Edema. No: Increased Warmth Peripheral Pulses: 2+: Dorsalis Pedis (L), Dorsalis Pedis (R) Skin: Warm, Dry Neuro Extensive - Mental Status: Alert, Slow Response to Commands Neuro Extensive - Motor, Sensory, Reflexes: No: Dysarthria, Abnormal Motor, Tremor Psychiatric: Alert, Normal Affect - Patient Data Lab Results Last 24 hrs: Laboratory Results - last 24 hr 09/14/16 09/14/16 Range/Units 07:22 07:22 WBC 5.9 (4.5-11.0) K/uL RBC 3.50 (3.30-5.50) M/uL Hgb 10.6 L (12.0-15.0) g/dL Hct 31.5 L (36.0-48.0) % MCV 90 (80-98) fL MCH 30 (27-31) pg MCHC 34 (32-36) % Plt Count 218 (150-400) K/uL Sodium 142 (140-148) mmol/L Potassium 2.7 L* (3.6-5.2) mmol/L Chloride 107 (100-108) mmol/L Carbon Dioxide 30 (21-32) mmol/L Anion Gap 7.7 (5.0-14.0) mmol/L BUN 9 (7-18) mg/dL Creatinine 0.6 (0.6-1.0) mg/dL Est Cr Clr Drug Dosing 112.99 mL/min Estimated GFR (MDRD) > 60 (>60) Glucose 96 (74-106) mg/dL Calcium 8.4 L (8.5-10.1) mg/dL Phosphorus 3.8 (2.5-4.9) mg/dL Magnesium 1.9 (1.8-2.4) mg/dL Ferritin 17 (8-388) ng/ml Total Bilirubin 0.6 (0.2-1.0) mg/dL AST 19 (15-37) U/L ALT 19 (12-78) U/L Alkaline Phosphatase 92 (46-116) U/L Total Protein 6.3 L (6.4-8.2) g/dL Albumin 2.9 L (3.4-5.0) g/dL Globulin 3.4 (2.3-3.5) g/dL Albumin/Globulin Ratio 0.9 L (1.2-2.2) Vitamin B12 301 (193-986) pg/ml Result Diagrams: 09/14/16 07:22 09/14/16 07:22 Consult PN Assessment/Plan POD#: 0 Procedures: Procedures ASSAY OF FERRITIN (04/08/16) ASSAY OF MAGNESIUM (08/30/16) ASSAY OF PHOSPHORUS (08/30/16) BLOOD TYPING SEROLOGIC ABO (03/09/15) BLOOD TYPING SEROLOGIC RH(D) (03/09/15) COMPLETE CBC AUTOMATED (08/16/16) COMPREHEN METABOLIC PANEL (08/16/16) CULTURE SCREEN ONLY (02/16/15) EGD BALLOON DIL ESOPH30 MM/> (12/07/15) EGD BIOPSY SINGLE/MULTIPLE (02/16/15) EGD DIAGNOSTIC BRUSH WASH (10/31/15) EGD DILATE STRICTURE (05/20/16) EGD ENDO MUCOSAL RESECTION (06/18/16) EGD REMOVE FOREIGN BODY (06/18/16) ESOPH EGD DILATION <30 MM (08/30/16) GASTRIC EMPTYING IMAG STUDY (06/16/14) HEPATOBIL SYST IMAGE W/DRUG (03/25/16) HYDRATE IV INFUSION ADD-ON (01/22/16) INSERT TUNNELED CV CATH (04/15/16) METABOLIC PANEL TOTAL CA (08/30/16) RBC ANTIBODY SCREEN (03/09/15) REMOVAL OF BREAST LESION (10/24/15) ROUTINE VENIPUNCTURE (08/30/16) SURGICAL PATH GROSS (06/18/16) THER/PROPH/DIAG IV INF ADDON (10/11/15) THER/PROPH/DIAG IV INF INIT (01/22/16) TISSUE EXAM BY PATHOLOGIST (06/18/16) TISSUE EXAM BY PATHOLOGIST (10/24/15) TX/PROPH/DG ADDL SEQ IV INF (01/22/16) (1) Accelerated hypertension SNOMED Code(s): 38213876 Code(s): I10 - ESSENTIAL (PRIMARY) HYPERTENSION Current Visit: Yes Problem List Initiated/Reviewed/Updated: Yes Plan: Assessment and plan - Accelerated hypertension -significant elevation of blood pressure immediately after surgery and she did receive a dose of labetalol. Blood pressures have been stable and moderately elevated since then. She did not get her usual medication until approximately 11 AM today. She reports her blood pressure is normally well controlled. She is receiving a fair amount of IV fluid at this time. No complaints of chest pain, shortness of breath or headache. -Continue carvedilol per home dosing -Closely monitor blood pressures but I don't believe she needs additional intervention at this time -Judicious use of IV fluids Italo Brar M.D. Requesting Provider: Dr. Carroll Date Consult Requested: 09/14/16 Reason for Consult: Hypertension Patient History Reviewed: Yes Admission H&P Reviewed: No (not Available) Notified Requestor: No Time Spent (in minutes): 40
[2016-09-14] MEDS: Prochlorperazine 10 MG/2 ML SDV IV PRN (19:51)
[2016-09-14] MEDS: Potassium Acetate 20 MEQ, Lidocaine 1% 2 ML in Sodium Chloride 0.9% 100 ML IV SCH (22:17)
[2016-09-15] MEDS: Prochlorperazine 10 MG/2 ML SDV IV PRN ×2 (00:38→19:38)
[2016-09-15] MEDS: Potassium Acetate 20 MEQ, Lidocaine 1% 2 ML in Sodium Chloride 0.9% 100 ML IV SCH (00:41)
[2016-09-15] MEDS: Prochlorperazine 10 MG Tab PO PRN ×2 (07:29→14:06)
[2016-09-15] MEDS: D5 1/2 NS w/ 20 mEq/L KCl 1,000 ML IV SCH ×2 (07:29→16:55)
[2016-09-15] MEDS: Carvedilol 6.25 MG Tab PO SCH ×2 (08:48→21:50)
[2016-09-15] MEDS: Sertraline 50 MG Tab PO SCH (08:48)
[2016-09-15] MEDS: VERIFY SCOP PATCH TOP SCH (08:49)
[2016-09-15] MEDS ORDERED: Cyanocobalamin (Vitamin B12) 1,000 MCG/ML SDV IM ONE (09:00)
[2016-09-15] MEDS: Potassium Phosphates 20 MMOLE in Sodium Chloride 0.9% 250 ML IV SCH ×3 (10:57→16:55)
--- NOTE | 2016-09-15 11:24 | PCM.SN ---
- Free Text/Narrative Note: Blood pressures much better today. No need for additional med titration at this time. Hospitalist service will sign off. Please feel free to contact us with additional concerns. Kolby Brar MD
--- NOTE | 2016-09-15 15:47 | PN ---
DATE OF SERVICE: 09/15/2016 The patient has been afebrile with stable vital signs. Blood pressure was somewhat high in recovery room, but has been reasonable since that time. She is not able to take much in oral due to quite a bit in the way of nausea today and continue the Compazine and scopolamine patch. If she is not able to keep things down, we will probably try getting an upper GI with some dilute barium to make sure that things are emptying out beyond the stent satisfactorily. Otherwise, awaiting morning labs, and likely give her some additional potassium today as well. Tim Carroll MD /[id number]
[2016-09-15] MEDS: Potassium Chloride 20 MEQ, Lidocaine 1% 2 ML in Sodium Chloride 0.9% 100 ML IV SCH ×2 (21:06→23:27)
[2016-09-15] MEDS: LORazepam 2 MG/ML MDV IV PRN (21:57)
[2016-09-16] MEDS: Potassium Chloride 20 MEQ, Lidocaine 1% 2 ML in Sodium Chloride 0.9% 100 ML IV SCH (01:30)
[2016-09-16] MEDS: D5 1/2 NS w/ 20 mEq/L KCl 1,000 ML IV SCH ×2 (04:03→16:21)
[2016-09-16] MEDS ORDERED: Barium Sulfate 98% Powder for Susp 340 GM Bottle PO SCH (08:45)
--- NOTE | 2016-09-16 08:59 | PN ---
DATE OF SERVICE: 09/16/2016 SUBJECTIVE: Nasra had an esophageal splint put in on Friday09/14/2016. She continues to have quite a bit of nausea. Oral intake yesterday was 780. She did have a 500 mL emesis, output was 3515. OBJECTIVE: GENERAL: Nasra Castillo is a 46-year-old female. VITAL SIGNS: TPR is 99.3, 69, 18, blood pressure 165/94. HEENT: Negative. NECK: Supple. HEART: Regular rate and rhythm. LUNGS: Clear. ABDOMEN: Negative. EXTREMITIES: Without peripheral edema. ASSESSMENT: Esophagogastroduodenoscopy, upper gastrointestinal endoscopy with dilation, placement of covered stent over esophageal jejunostomy, date of surgery 09/14/2016. PLAN: Upper gastrointestinal using dilute barium. Radiology present with no small-bowel follow-through to evaluate stent. Page Dr. Carroll when completed. Good pulmonary toilet encouraged. We will evaluate p.r.n. or in a.m. Micki Jane PA-C /[id number]
--- NOTE | 2016-09-16 09:27 | CR ---
Abdomen 1V Flat HISTORY: post stent FINDINGS: Distal esophageal stent is in place. Mild prominence of small bowel loops and colon sugges ts postoperative ileus. No obstruction or free air can be seen. Surgical clips are noted right upper quadrant consistent with prior cholecystectomy. IMPRESSION: Status post esophageal stent placement. Possible ileus.
[2016-09-16] MEDS: Prochlorperazine 10 MG Tab PO PRN (10:32)
[2016-09-16] MEDS: Sertraline 50 MG Tab PO SCH ×3 (10:32→20:57)
[2016-09-16] MEDS: Carvedilol 6.25 MG Tab PO SCH ×2 (10:32→20:55)
[2016-09-16] MEDS: VERIFY SCOP PATCH TOP SCH (10:35)
--- NOTE | 2016-09-16 11:21 | CR ---
UGI wo KUB HISTORY: esophageal stent to make sure everything goes thru FINDINGS: The patient is status post esophageal stent placement. Single contrast upper GI series was obtained in the usual fashion. The patient swallows the barium mixture without difficulty. Esophage al stent is patent. Contrast passes into the gastric pouch and through the gastrojejunostomy into lo ops of jejunum without difficulty. No obstruction is seen. Esophageal motility above the stent appea rs satisfactory. There is no contrast extravasation. IMPRESSION: No obstruction, contrast extravasation or other complication is identified status post e sophageal stent placement.
--- NOTE | 2016-09-16 12:26 | OR ---
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 OPERATIVE PROCEDURE: Upper GI endoscopy with, 1. Dilation of esophagojejunostomy. 2. Placement of a covered stent over esophagojejunostomy (88415). ANESTHESIA: IV sedation. INDICATIONS FOR PROCEDURE: This is a 46-year-old female with recurrent stricturing at esophagojejunostomy. Overall, she has had multiple dilations, and at this point, wishes to have a stent placement to see if that helps with maintaining a degree of dilation. Potential risks of the procedure including bleeding, infection, perforation with likelihood of some nausea that can be quite debilitating postprocedure were all reviewed with the patient and she wishes to proceed. DETAILS OF PROCEDURE: The patient was taken to the operating room and placed in a left lateral decubitus position. IV sedation was administered, after which the upper GI endoscope was passed orally through the length of the esophagus and down along the esophagojejunostomy. The patient was noted to have a recurrent stricture present measuring around 8 mm with a 9-mm scope not quite being able to be passed through the anastomosis. A Bard gastrointestinal balloon catheter was then centered across the anastomosis using fluoroscopic surveillance and inflated to 45-[place] size and held in position for 1 minute after which the balloon catheter was deflated and withdrawn. The scope could then easily be passed through the anastomosis. Guidewire was then passed into the main channel of the Ky limb and the gastroscope was withdrawn as the guidewire was left in place with continuous ultrasound guidance. An ALIMAXX covered stent with a length of 120 cm in diameter 2.3 cm was then centered across the anastomosis again with fluoroscopic surveillance and deployed. Adequate deployment was confirmed and the scope was then passed through the area and the gastroscope was then placed back in which confirmed adequate coverage of the area of stricturing. The scope was easily passed through that area and distally into the remainder of the Ky limb without difficulty. The scope was then withdrawn, procedure concluded, and the patient was taken to the recovery room in satisfactory condition. There were no evident complications. Tim Carroll MD /[id number]
[2016-09-16] MEDS: LORazepam 1 MG Tab PO PRN ×2 (16:24→21:03)
[2016-09-17] MEDS: Prochlorperazine 10 MG/2 ML SDV IV PRN ×2 (01:11→19:29)
--- NOTE | 2016-09-17 08:20 | PN ---
DATE OF SERVICE: 09/17/2016 SUBJECTIVE: Nasra had an oral intake of 600 yesterday. She did have a 50 mL emesis, bowel movement today, afebrile, less nauseated. Vital signs have been stable. REVIEW OF SYSTEMS: Remainder of review of systems negative for any pertinent positives and negatives. OBJECTIVE: GENERAL: Nasra Castillo is a 46-year-old female. She was awaken from sleeping this morning. VITAL SIGNS: TPR is 99, 75, 18. Blood pressure 156/95. HEENT: Negative. NECK: Supple. HEART: Regular rate and rhythm. LUNGS: Clear. ABDOMEN : Soft, nontender. EXTREMITIES: Without peripheral edema. ASSESSMENT: Upper GI endoscopy with dilation of esophageal jejunostomy and placement of covered stent over esophageal jejunostomy for recurrent stricturing of the esophageal jejunostomy. Date of procedure 09/14/2016. PLAN: 1. Continue to increase liquids. 2. The patient to be given a blank sheet of paper to record her intake at bedside. Micki Jane PA-C /[id number]
[2016-09-17] MEDS ORDERED: Scopolamine 1.5 MG Transdermal Patch TRDERM SCH (09:00)
[2016-09-17] MEDS: Carvedilol 6.25 MG Tab PO SCH ×2 (09:10→20:49)
[2016-09-17] MEDS: VERIFY SCOP PATCH TOP SCH (09:17)
[2016-09-17] MEDS: LORazepam 1 MG Tab PO PRN ×2 (11:31→20:49)
[2016-09-17] MEDS: D5 1/2 NS w/ 20 mEq/L KCl 1,000 ML IV SCH ×2 (12:09→21:46)
[2016-09-17] MEDS: Sertraline 50 MG Tab PO SCH (20:50)
[2016-09-18] MEDS ORDERED: Midazolam 1 MG/ML 2 ML SDV ONE (07:57)
[2016-09-18] MEDS ORDERED: fentaNYL 100 MCG/2 ML SDV ONE (07:57)
[2016-09-18] MEDS ORDERED: Propofol 200 MG/20 ML SDV ONE (07:57)
[2016-09-18] MEDS: Carvedilol 6.25 MG Tab PO SCH ×2 (09:14→21:08)
[2016-09-18] MEDS: VERIFY SCOP PATCH TOP SCH (09:16)
[2016-09-18] MEDS: D5 1/2 NS w/ 20 mEq/L KCl 1,000 ML IV SCH ×2 (09:27→19:52)
[2016-09-18] MEDS ORDERED: LIDOCAINE 1% IV ONE (10:30)
[2016-09-18] MEDS ORDERED: POTASSIUM CHLORIDE IV ONE (10:30)
[2016-09-18] MEDS ORDERED: SODIUM CHLORIDE 0.9% IV ONE (10:30)
--- NOTE | 2016-09-18 11:09 | PN ---
DATE OF SERVICE: 09/18/2016 SUBJECTIVE: Nasra has persistent nausea. Temperature max 99.1. Oral intake yesterday was 1,960. She is requesting to have esophageal stent removed due to persistent nausea. REVIEW OF SYSTEMS: Remainder of review of systems negative for any pertinent positives and negatives. OBJECTIVE: GENERAL: Nasra Castillo is a 46-year-old female. VITAL SIGNS: TPR 97.9, 58, 16. Blood pressure 160/72. HEENT: Negative. NECK: Supple. HEART: Regular rate and rhythm. LUNGS: Clear. ABDOMEN: Soft and nontender. EXTREMITIES: Without peripheral edema. ASSESSMENT: 1. Persistent nausea. 2. Upper GI endoscopy with dilation of esophageal jejunostomy junction and placement of covered stent over esophageal jejunostomy for recurrent stricturing of esophageal jejunostomy, date of procedure 09/14/2016. PLAN: Scheduled and have consent signed for EGD with removal of esophageal stent, IV sedation, Tim Carroll; n.p.o. procedure today, case to follow. Orders to be written postoperatively. Micki Jane PA-C /[id number]
[2016-09-18] MEDS ORDERED: Potassium Phosphates 25 MMOLE in Sodium Chloride 0.9% 500 ML IV ONE (13:30)
[2016-09-18] MEDS ORDERED: Potassium Phosphates 20 MMOLE in Sodium Chloride 0.9% 250 ML IV ONE (18:00)
[2016-09-18] MEDS: Sertraline 50 MG Tab PO SCH (21:08)
[2016-09-18] MEDS: LORazepam 1 MG Tab PO PRN (22:40)
[2016-09-19] MEDS: D5 1/2 NS w/ 20 mEq/L KCl 1,000 ML IV SCH (06:14)
[2016-09-19] MEDS ORDERED: Potassium Chloride 20 MEQ in Premix Bag 1 BAG IV ONE (06:50)
[2016-09-19] MEDS: Carvedilol 6.25 MG Tab PO SCH (08:40)
[2016-09-19] MEDS: VERIFY SCOP PATCH TOP SCH (08:42)
[2016-09-19 08:43] VITALS: BP 132/77
--- NOTE | 2016-09-19 08:57 | DISCH ---
ADMISSION DIAGNOSES: Dysphagia, status post Ky-en-Y gastric bypass surgery, unspecified surgical malabsorption, B12 deficiency, hypertension, depression, anxiety, and chronic hypokalemia. DISCHARGE DIAGNOSES: 1. Upper GI endoscopy with dilation of esophagojejunostomy junction and placement of covered stent over esophagojejunostomy for recurrent stricturing of esophagojejunostomy. Date of procedure 09/14/2016. 2. Persistent nausea. 3. Removal of esophageal stent, date 09/18/2016. HISTORY: Nasra Castillo is a 46-year-old female who has had persistent formation of strictures in her esophageal junction. She had upper GI with dilation and placement of stent on 09/14/2016. She had persistent nausea and requested to have the stent removed on 09/18/2016. HOSPITAL COURSE: Nasra continued to have persistent nausea. The stent was removed. She was able to be discharged to home with adequate oral intake and no nausea. PHYSICAL EXAMINATION: GENERAL: Nasra Castillo is a 46-year-old female. VITAL SIGNS: Height is 5 feet 6 inches. Weight 157 pounds. TPR is 97.9, 63, 18, and blood pressure 120/63. HEENT: Negative. NECK: Supple. HEART: Regular rate and rhythm. LUNGS: Clear. ABDOMEN: Soft and nontender. EXTREMITIES: Without peripheral edema. DISPOSITION: Discharged to home. CONDITION: Stable and improving. FOLLOWUP: Followup appointment with Micki Jane PA-C, on 09/30/2016 at 11 a.m. DIET AFTER DISCHARGE: Drink 8 to 10 glasses of water a day. Step-2 gastric bypass diet for 2 weeks. ACTIVITY: As tolerated. Shower/bathing, may shower. DISCHARGE INSTRUCTIONS: Notify provider if any nausea or vomiting. DISCHARGE MEDICATIONS: She is to resume her home medications. Stressed importance of compliance, especially with potassium. Home medications to resume include Tylenol 650 mg p.o. q.4 hours p.r.n., Coreg 6.25 mg oral b.i.d., vitamin B12 1000 mcg sublingual daily, vitamin D2 50,000 units every day for 30 days, Ativan 1 mg oral q.6 hours p.r.n. nausea, multivitamin one tablet chewable twice daily, Bactroban ointment use as directed for rash, (potassium chloride) Klor-Con 10 mEq oral twice daily, Compazine 10 mg q.6 hours p.r.n. nausea, Zoloft 50 mg oral daily, and Zomig 5 mg as directed p.r.n. headache.
--- NOTE | 2016-09-21 17:15 | PN ---
DATE OF SERVICE: 09/18/2016 The patient had her esophageal stent removed today. She did have fairly good oral intake yesterday, but simply having intolerable nausea which was essentially intractable to medical management. Given this, the stent was removed. The area did appear to be remaining dilated after removal of the stent. We will begin a full-liquid diet today and see how she does may be home tomorrow. Tim Carroll MD /[id number]
--- NOTE | 2016-09-21 20:12 | OR ---
DATE OF PROCEDURE: 09/18/2016 PREOPERATIVE DIAGNOSIS: Intolerance of esophageal stent. POSTOPERATIVE DIAGNOSIS: Intolerance of esophageal stent. OPERATIVE PROCEDURE: Upper gastrointestinal endoscopy with removal of esophageal stent (54086). ANESTHESIA: IV sedation. INDICATION FOR PROCEDURE: This is a 46-year-old status post placement of esophageal stent 4 days ago. She has been intolerant in terms of persistent nausea and wishes to be removed. Potential risks including bleeding, infection, injury to esophagus and overlying structures were reviewed, and the patient wishes to proceed. DESCRIPTION OF PROCEDURE: The patient was taken to the operating room and placed in a left lateral decubitus position. IV sedation was administered, after which the upper GI endoscope was passed orally through the length of the stent and then from there into the jejunal limb. The stent was in good position. The upper rim was then grasped and the stent removed without difficulty. The scope was then placed. Once again, no complications were noted. The areas of stricture dilation appeared to be remaining open. The scope was then withdrawn. The patient was taken to the recovery room in satisfactory condition. Tim Carroll MD /[id number]
== END 2016-09-19 09:40 | disposition home or self-care (01) | DRG 222 ==
LOC: JP.SDS 06:35 → JP.MS 08:25 → EDSTATUS 08:30 → JP.MS 09:57
PROVIDERS: ADMIT Surgery; ATTEND Surgery
PROC: 0D758DZ Dilation of Esophagus with Intraluminal Device, Via Natural or Artificial Opening Endoscopic (ICD-10-PCS; principal; 2016-09-14)
PROC: 0DP58DZ Removal of Intraluminal Device from Esophagus, Via Natural or Artificial Opening Endoscopic (ICD-10-PCS; 2016-09-18)
DX: K22.2 Esophageal obstruction (principal); R11.0 Nausea; R13.10 Dysphagia, unspecified; K90.9 Intestinal malabsorption, unspecified; E53.8 Deficiency of other specified B group vitamins; I10 Essential (primary) hypertension; F41.8 Other specified anxiety disorders; E87.6 Hypokalemia; T78.8XXA Other adverse effects, not elsewhere classified, initial encounter; T85.898A Other specified complication of other internal prosthetic devices, implants and grafts, initial encounter; Y83.8 Other surgical procedures as the cause of abnormal reaction of the patient, or of later complication, without mention of misadventure at the time of the procedure; Y92.230 Patient room in hospital as the place of occurrence of the external cause; Z98.84 Bariatric surgery status; Z88.8 Allergy status to other drugs, medicaments and biological substances; Z79.899 Other long term (current) drug therapy; Z87.891 Personal history of nicotine dependence
CPT/HCPCS: 36415; 74000; 74000-26; 74240; 74240-26; 80048; 80053; 82607; 82728; 83735; 84100; 85027; 94762; A9270-GY; C1874; J0780; J1642; J2060; J2250; J2405; J2704; J3010; J3411; J3420; J3480; J3490; J7030; J7040; J7050; J7120

== ENCOUNTER → 2016-10-11 | Day surgery (SDC) | payer BC ==
[~2016-10-11] MED LIST changes: +Cyanocobalamin (Vitamin B12) 1,000 MCG/ML SDV IM ONE; +Glycopyrrolate 0.2 MG/ML 2 ML SDV IVPUSH ONE; +Lactated Ringers 1,000 ML IV ONE; +Lactated Ringers 1,000 ML ONE; +MVI, Adult with Vitamin K 10 ML, Thiamine 200 MG, Chromium/Copper/Mang/Selen/Zn 1 ML in... IV ONE
[2016-10-11] MEDS: Potassium Phosphates 20 MMOLE in Sodium Chloride 0.9% 150 ML IV SCH ×3 (09:18→15:07)
[2016-10-11 13:01] VITALS: BP 133/77
--- NOTE | 2016-10-14 16:33 | OR ---
DATE OF PROCEDURE: 10/11/2016 PREOPERATIVE DIAGNOSIS: Probable stricture of esophagojejunostomy. POSTOPERATIVE DIAGNOSIS: Stricture of esophagojejunostomy. OPERATIVE PROCEDURE: Upper GI endoscopy with dilation of esophagojejunostomy (41214). ANESTHESIA: IV sedation. INDICATION FOR PROCEDURE: This 46-year-old is presenting with some recurrent symptoms of stricturing at her esophagojejunostomy. The plan is to proceed with an upper GI endoscopy with dilation as indicated. Potential risks including bleeding and perforation were discussed and the patient wishes to proceed. DETAILS OF PROCEDURE: The patient was taken to the operating room and placed in a left lateral decubitus position. IV sedation was administered after which the upper GI endoscope was passed orally through the length of the esophagus. At the esophagojejunostomy, the patient was found to have an elliptically shaped opening with some degree of stricturing. The scope could not quite be passed through the anastomosis. A Bard gastrointestinal balloon catheter was then centered across the anastomosis, inflated to 45-[place] size. This was held in position for 1 minute after which the balloon catheter was deflated and withdrawn. The scope was then could easily be passed through the anastomosis. There was a fracture of the mucosa present, but otherwise this appeared to be uncomplicated, and postoperatively, the patient showed no signs of perforation. The scope at that point was withdrawn and the patient was taken to the recovery room in satisfactory condition. Tim Carroll MD /[id number]
== END ==
LOC: JP.SDS 06:35
PROVIDERS: ATTEND Surgery
DX: K94.33 Esophagostomy malfunction (principal); E78.5 Hyperlipidemia, unspecified; K21.9 Gastro-esophageal reflux disease without esophagitis; M79.7 Fibromyalgia; G47.33 Obstructive sleep apnea (adult) (pediatric)
CPT/HCPCS: 36415; 43249; 80048; 82728; 83735; 84100; J2250; J2704; J3010; J3411; J3420; J7040; J7120; J3490

== ENCOUNTER 2016-10-29 08:58 | Day surgery (SDC) | payer BC ==
[~2016-10-29 08:58] MED LIST changes: -Cyanocobalamin (Vitamin B12) 1,000 MCG/ML SDV IM ONE; -Glycopyrrolate 0.2 MG/ML 2 ML SDV IVPUSH ONE; -Lactated Ringers 1,000 ML IV ONE; -Lactated Ringers 1,000 ML ONE; -MVI, Adult with Vitamin K 10 ML, Thiamine 200 MG, Chromium/Copper/Mang/Selen/Zn 1 ML in... IV ONE
[2016-10-29] MEDS ORDERED: Lactated Ringers 1,000 ML IV ONE (09:30)
[2016-10-29] MEDS: Potassium Chloride 20 MEQ in Premix Bag 1 BAG IV SCH ×2 (10:05→12:40)
[2016-10-29] MEDS ORDERED: MVI, Adult with Vitamin K 10 ML, Thiamine 200 MG, Chromium/Copper/Mang/Selen/Zn 1 ML in... IV ONE ×4 (10:30)
[2016-10-29] MEDS ORDERED: Cyanocobalamin (Vitamin B12) 1,000 MCG/ML SDV IM ONE (10:30)
[2016-10-29] MEDS ORDERED: Glycopyrrolate 0.2 MG/ML 2 ML SDV IVPUSH ONE (10:45)
[2016-10-29 14:23] VITALS: BP 117/67
--- NOTE | 2016-11-04 09:45 | OR ---
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 POSTOPERATIVE DIAGNOSIS: Strictured esophagojejunostomy. OPERATIVE PROCEDURE: Upper GI endoscopy with dilation of esophagojejunostomy (12258). ANESTHESIA: IV sedation. INDICATION FOR PROCEDURE: The patient presents once again with some stricturing at her esophagojejunostomy. Plan is to proceed with upper GI endoscopy with dilation as indicated. Potential risks including bleeding and perforation were discussed, and the patient wishes to proceed. DETAILS OF PROCEDURE: The patient was taken to the operating room and placed in a left lateral decubitus position. IV sedation was administered, after which the upper GI endoscope was passed orally through the length of the esophagus and into the level of esophagojejunostomy. The patient was noted to have a fairly tight stricture measuring around 5 mm. There was no significant mucosal inflammation present. Bard gastrointestinal catheter was centered across the anastomosis and inflated to 45-Egyptian size. This was inflated to stage III, i.e. 60 psi. When the balloon catheter was deflated and withdrawn, the scope was easily able to be passed through the anastomosis. No complications were noted. The procedure concluded. The patient was taken to the recovery room in a satisfactory condition. Tim Carroll MD /[id number]
== END 2016-10-29 14:10 | disposition home or self-care (01) ==
LOC: JP.SDS 08:58
PROVIDERS: ATTEND Surgery
DX: K91.89 Other postprocedural complications and disorders of digestive system (principal)
CPT/HCPCS: 36415; 43249; 80048; 83735; 84100; J1642; J2250; J2704; J3010; J3411; J3420; J3480; J7120; J3490

== ENCOUNTER 2016-11-25 08:57 | Day surgery (SDC) | payer BC ==
[2016-11-25] MEDS ORDERED: Cyanocobalamin (Vitamin B12) 1,000 MCG/ML SDV IM ONE (09:30)
[2016-11-25] MEDS ORDERED: MVI, Adult with Vitamin K 10 ML, Thiamine 200 MG, Chromium/Copper/Mang/Selen/Zn 1 ML in... IV ONE ×4 (09:30)
[2016-11-25] MEDS ORDERED: Lactated Ringers 1,000 ML IV ONE (09:30)
[2016-11-25] MEDS ORDERED: Glycopyrrolate 0.2 MG/ML 2 ML SDV IVPUSH ONE (09:30)
[2016-11-25] MEDS: Potassium Phosphates 20 MMOLE in Sodium Chloride 0.9% 250 ML IV SCH ×3 (10:34→16:41)
[2016-11-25] MEDS ORDERED: Midazolam 1 MG/ML 2 ML SDV ONE (11:34)
[2016-11-25] MEDS ORDERED: Propofol 200 MG/20 ML SDV ONE (11:34)
[2016-11-25] MEDS ORDERED: fentaNYL 100 MCG/2 ML SDV ONE (11:34)
[2016-11-25] MEDS ORDERED: Lactated Ringers 1,000 ML ONE (12:18)
[2016-11-25 20:08] VITALS: BP 151/78
--- NOTE | 2016-11-27 13:24 | OR ---
DATE OF PROCEDURE: 11/25/2016 PREOPERATIVE DIAGNOSIS: Probable strictured esophagojejunostomy. POSTOPERATIVE DIAGNOSIS: Moderate strictured esophagojejunostomy. OPERATIVE PROCEDURE: Upper GI endoscopy with dilation of esophagojejunostomy (90063). ANESTHESIA: IV sedation. INDICATION FOR PROCEDURE: This 46-year-old female presenting with some recurrent symptoms of stricturing at her esophagojejunostomy. It has been about a month since the last dilation, so the interval between the dilations appears to be increasing. Plan is to proceed with upper GI endoscopy with dilation as indicated. Potential risks including bleeding and perforation were discussed, and the patient wishes to proceed. DETAILS OF PROCEDURE: The patient was taken to the operating room and placed in a left lateral decubitus position. IV sedation was administered, after which the upper GI endoscope was passed orally through the length of the esophagus and into the area of the esophagojejunostomy. This was mildly narrowed, but not quite accepting the 1 cm gastroscope. There was minimal inflammation present grossly. A Bard gastrointestinal balloon catheter was centered across the anastomosis, using fluoroscopic surveillance, and inflated to 45-St Helenian size. This was inflated to a level 2 or 45 psi. This was held in position for 1 minute. After the balloon catheter was deflated and withdrawn, the scope was then easily passed through the anastomosis. No complications were noted. The patient was taken to the recovery room in a satisfactory condition. Tim Carroll MD /[id number]
== END 2016-11-25 20:15 | disposition home or self-care (01) ==
LOC: JP.SDS 08:57
PROVIDERS: ATTEND Surgery
DX: K91.89 Other postprocedural complications and disorders of digestive system (principal); K21.9 Gastro-esophageal reflux disease without esophagitis; G47.33 Obstructive sleep apnea (adult) (pediatric); I10 Essential (primary) hypertension; E55.9 Vitamin D deficiency, unspecified; Z87.891 Personal history of nicotine dependence; F41.9 Anxiety disorder, unspecified; F32.9 Major depressive disorder, single episode, unspecified; G47.30 Sleep apnea, unspecified; Z98.890 Other specified postprocedural states; Z98.84 Bariatric surgery status; Z90.49 Acquired absence of other specified parts of digestive tract; Z90.710 Acquired absence of both cervix and uterus; Z88.1 Allergy status to other antibiotic agents; Z88.8 Allergy status to other drugs, medicaments and biological substances
CPT/HCPCS: 36415; 43249; 80048; 82728; 83735; 84100; 85027; J1642; J2250; J2704; J3010; J3411; J3420; J7050; J7120; J3490

== ENCOUNTER 2017-01-17 06:21 | Day surgery (SDC) | payer BC ==
[2017-01-17] MEDS ORDERED: Cyanocobalamin (Vitamin B12) 1,000 MCG/ML SDV IM ONE (07:00)
[2017-01-17] MEDS ORDERED: Lactated Ringers 1,000 ML IV SCH (07:00)
[2017-01-17] MEDS ORDERED: Glycopyrrolate 0.2 MG/ML 2 ML SDV IVPUSH ONE (07:30)
[2017-01-17] MEDS ORDERED: Midazolam 1 MG/ML 2 ML SDV ONE (07:32)
[2017-01-17] MEDS ORDERED: fentaNYL 100 MCG/2 ML SDV ONE (07:32)
[2017-01-17] MEDS ORDERED: Propofol 200 MG/20 ML SDV ONE (07:32)
[2017-01-17] MEDS ORDERED: MVI, Adult with Vitamin K 10 ML, Thiamine 200 MG, Chromium/Copper/Mang/Selen/Zn 1 ML in... IV ONE ×4 (08:00)
[2017-01-17 09:25] VITALS: BP 163/90
--- NOTE | 2017-01-17 10:56 | OR ---
DATE OF PROCEDURE: 01/17/2017 PREOPERATIVE DIAGNOSIS: Stricture at gastrojejunostomy. POSTOPERATIVE DIAGNOSIS: Stricture at gastrojejunostomy. PROCEDURE: Esophagojejunoscopy with dilatation of gastrojejunostomy to 45- Algerian. SURGEON: Carlos Larson MD. ANESTHESIA: IV anesthesia with monitored anesthesia care. 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 She has had problems with recurrent stricture, the interval is increasing in length between dilatations, but she presents now with dysphagia, and a request is made for dilatation. I counseled her for this , and she gave her informed consent to proceed. DESCRIPTION OF PROCEDURE: The patient was placed in the left lateral decubitus position. IV anesthesia was administered by the Anesthesia Service. Time-out was held. The flexible video Olympus upper endoscope was passed through her mouth, down her esophagus, to the anastomosis. The scope could not go through the anastomosis, it was too tight. We were able to pass a balloon dilator across the anastomosis under fluoroscopic guidance. We then dilated it to 45-Algerian, which is a level 2 for about 30 seconds. The balloon was then deflated and withdrawn back. This dilated it nicely. We were able to easily pass the scope then through the anastomosis. The scope was then removed. All looked well. She tolerated the procedure well and was brought to the recovery room in good condition. Carlos Larson MD /[id number]
== END 2017-01-17 09:36 | disposition home or self-care (01) ==
LOC: JP.SDS 06:21
PROVIDERS: ATTEND Surgery
DX: K22.2 Esophageal obstruction (principal); R13.10 Dysphagia, unspecified; G43.909 Migraine, unspecified, not intractable, without status migrainosus; K21.9 Gastro-esophageal reflux disease without esophagitis; G47.30 Sleep apnea, unspecified; E53.8 Deficiency of other specified B group vitamins; M79.7 Fibromyalgia; F34.1 Dysthymic disorder; F32.9 Major depressive disorder, single episode, unspecified; E66.01 Morbid (severe) obesity due to excess calories; Z68.24 Body mass index [BMI] 24.0-24.9, adult; Z98.84 Bariatric surgery status; Z79.899 Other long term (current) drug therapy; Z88.1 Allergy status to other antibiotic agents; Z88.5 Allergy status to narcotic agent; Z88.8 Allergy status to other drugs, medicaments and biological substances; Z98.890 Other specified postprocedural states
CPT/HCPCS: 43249; J1642; J2250; J2704; J3010; J3411; J3420; J7120; J3490

== ENCOUNTER 2017-02-17 05:19 | Day surgery (SDC) | payer BC ==
[2017-02-17] MEDS ORDERED: Lactated Ringers 1,000 ML IV SCH (06:30)
[2017-02-17] MEDS ORDERED: Cyanocobalamin (Vitamin B12) 1,000 MCG/ML SDV IM ONE (06:30)
[2017-02-17] MEDS ORDERED: Midazolam 1 MG/ML 2 ML SDV ONE (07:03)
[2017-02-17] MEDS ORDERED: Propofol 200 MG/20 ML SDV ONE (07:03)
[2017-02-17] MEDS ORDERED: fentaNYL 100 MCG/2 ML SDV ONE (07:03)
[2017-02-17] MEDS ORDERED: Glycopyrrolate 0.2 MG/ML 2 ML SDV IVPUSH ONE (07:30)
[2017-02-17] MEDS ORDERED: Hydrocortisone Sodium Succinate 100 MG/2 ML SDV IVPUSH PRN (07:52)
[2017-02-17] MEDS ORDERED: Famotidine 20 MG Tab PO ONE (07:53)
[2017-02-17] MEDS ORDERED: diphenhydrAMINE 50 MG/ML SDV IVPUSH PRN (07:53)
[2017-02-17] MEDS ORDERED: Famotidine 20 MG/2 ML SDV IV PRN (08:09)
[2017-02-17] MEDS ORDERED: MVI, Adult with Vitamin K 10 ML, Thiamine 200 MG, Chromium/Copper/Mang/Selen/Zn 1 ML in... IV ONE ×4 (08:30)
[2017-02-17 16:06] VITALS: BP 142/80
--- NOTE | 2017-02-22 13:29 | OR ---
DATE OF PROCEDURE: 02/17/2017 PREOPERATIVE DIAGNOSIS: Probable strictured esophagojejunostomy. POSTOPERATIVE DIAGNOSIS: Strictured esophagojejunostomy. OPERATIVE PROCEDURE: Upper GI endoscopy, dilation of esophagojejunostomy (13204). ANESTHESIA: IV sedation. INDICATIONS FOR PROCEDURE: The patient presents once again with some symptoms suggestive of stricturing of esophagojejunostomy. Plan is to proceed with upper GI endoscopy with dilation as indicated. Potential risks including bleeding and perforation were discussed, and the patient wishes to proceed. DETAILS OF PROCEDURE: The patient was taken to the operating room and placed in a left lateral decubitus position. IV sedation was administered, after which the upper GI endoscope was passed orally through the length of the esophagus at the esophagojejunostomy. The patient was noted to have moderate stricture. Initially, the gastrointestinal balloon catheter was inflated at 36-Equatorial Guinean and centered across the anastomosis and at that point felt reasonable to proceed to a 45-Equ[place]inean and that was completed as well. It was held in position for 1 minute. Balloon catheter was then deflated and withdrawn. The scope was easily passed through the anastomosis. No complications were noted and the patient was taken to the recovery room in satisfactory condition. The patient's ferritin is quite low at 9, so she will receive iron infusion this morning and also potassium was 3.3 and she will receive potassium acetate 60 mEq today as well. Tim Carroll MD /[id number]
== END 2017-02-17 15:15 | disposition home or self-care (01) ==
LOC: JP.SDS 05:19
PROVIDERS: ATTEND Surgery
DX: K91.89 Other postprocedural complications and disorders of digestive system (principal); Z88.1 Allergy status to other antibiotic agents; Z88.8 Allergy status to other drugs, medicaments and biological substances
CPT/HCPCS: 36415; 43214; 80053; 82607; 82728; 83735; 84100; 85027; J2250; J2704; J3010; J3411; J3420; J7030; J7120; Q0138; J3490

== ENCOUNTER 2017-03-14 07:42 | Day surgery (SDC) | payer BC ==
[2017-03-14] MEDS ORDERED: Midazolam 1 MG/ML 2 ML SDV ONE (08:02)
[2017-03-14] MEDS ORDERED: Propofol 200 MG/20 ML SDV ONE (08:02)
[2017-03-14] MEDS ORDERED: fentaNYL 100 MCG/2 ML SDV ONE (08:02)
[2017-03-14] MEDS ORDERED: Lactated Ringers 1,000 ML IV SCH (08:15)
[2017-03-14] MEDS ORDERED: Cyanocobalamin (Vitamin B12) 1,000 MCG/ML SDV IM ONE (08:30)
[2017-03-14] MEDS ORDERED: Glycopyrrolate 0.2 MG/ML 2 ML SYRINGE IVPUSH ONE (09:00)
[2017-03-14] MEDS: Sodium Chloride 0.9% 10 ML Syringe FLUSH PRN ×2 (09:12→14:30)
[2017-03-14] MEDS ORDERED: MVI, Adult with Vitamin K 10 ML, Thiamine 200 MG, Chromium/Copper/Mang/Selen/Zn 1 ML in... IV ONE ×4 (09:30)
[2017-03-14] MEDS ORDERED: Pantoprazole 40 MG Vial IVPUSH ONE (09:50)
[2017-03-14 14:28] VITALS: BP 151/81
--- NOTE | 2017-03-21 13:03 | OR ---
DATE OF PROCEDURE: 03/14/2017 PREOPERATIVE DIAGNOSIS: Probable stricture at esophagojejunostomy. POSTOPERATIVE DIAGNOSIS: Moderate stricture at esophagojejunostomy. OPERATIVE PROCEDURE: Upper GI endoscopy with dilation of esophagojejunostomy (44656). ANESTHESIA: IV sedation. INDICATION FOR PROCEDURE: The patient presents with a recurrent stricturing at her esophagojejunostomy. Plan is to proceed with upper GI endoscopy with biopsies as indicated. Potential risks including bleeding and perforation were discussed, and the patient wishes to proceed. DETAILS OF PROCEDURE: The patient was taken to the operating room and placed in a left lateral decubitus position. IV sedation was administered, after which the upper GI endoscope was passed orally through the length of the esophagus and into the level of the esophagojejunostomy. The 1 cm scope could not quite be passed through the anastomosis. There was minimal mucosal inflammation per se. The Bard gastrointestinal balloon catheter was centered across the anastomosis, inflated to 36-Barbadian size. This was held in position for 1 minute after which the balloon catheter was deflated and withdrawn. The scope could easily then be passed through the anastomosis. No complications were noted. The patient was taken to the recovery room in satisfactory condition. Of note, her potassium is somewhat low today. She will be receiving some IV potassium supplementation prior to discharge. Tim Carroll MD /[id number]
== END 2017-03-14 14:35 | disposition home or self-care (01) ==
LOC: JP.SDS 07:42
PROVIDERS: ATTEND Surgery
DX: K91.89 Other postprocedural complications and disorders of digestive system (principal); K21.9 Gastro-esophageal reflux disease without esophagitis
CPT/HCPCS: 36415; 43249; 80053; 83735; 84100; 85027; C9113; J1642; J2250; J2704; J3010; J3411; J3420; J3480; J7030; J7050; J7120; J3490

== ENCOUNTER 2017-04-14 06:05 | Day surgery (SDC) | payer BC ==
[2017-04-14] MEDS ORDERED: Lactated Ringers 1,000 ML IV SCH (08:00)
[2017-04-14] MEDS ORDERED: Propofol 200 MG/20 ML SDV ONE (08:05)
[2017-04-14] MEDS ORDERED: Midazolam 1 MG/ML 2 ML SDV ONE (08:06)
[2017-04-14] MEDS ORDERED: fentaNYL 100 MCG/2 ML SDV ONE (08:06)
[2017-04-14] MEDS ORDERED: Cyanocobalamin (Vitamin B12) 1,000 MCG/ML SDV IM ONE (08:30)
[2017-04-14] MEDS ORDERED: Glycopyrrolate 0.2 MG/ML 2 ML SDV IVPUSH ONE (09:00)
[2017-04-14] MEDS ORDERED: MVI, Adult with Vitamin K 10 ML, Thiamine 200 MG, Chromium/Copper/Mang/Selen/Zn 1 ML in... IV ONE ×4 (09:30)
[2017-04-14] MEDS ORDERED: Lactated Ringers 1,000 ML ONE (10:06)
[2017-04-14 12:02] VITALS: BP 147/76
--- NOTE | 2017-04-15 11:36 | OR ---
DATE OF PROCEDURE: 04/14/2017 PREOPERATIVE DIAGNOSIS: Probable stricture at esophagojejunostomy. POSTOPERATIVE DIAGNOSIS: Stricture at esophagojejunostomy. OPERATIVE PROCEDURE: Upper GI endoscopy with dilation of esophagojejunostomy (09359). ANESTHESIA: IV sedation. INDICATIONS FOR PROCEDURE: The patient presents once again with some symptoms of stricturing at her gastrojejunostomy. Plan is to proceed with an upper GI endoscopy with dilation as indicated. Potential risks including bleeding and perforation were discussed, and the patient wishes to proceed. DETAILS OF PROCEDURE: The patient was taken to the operating room and placed in a left lateral decubitus position. IV sedation was administered, after which the upper GI endoscope was passed orally through the length of the esophagus and into the area of the esophagojejunostomy. This was noted to have no retained food or fluid. The degree of stricturing was less since previously seen, and there was a distinctly less amount of ongoing mucosal inflammation. Bard gastrointestinal balloon catheter was centered across the anastomosis and inflated to 36-Kyrgyz size. Following this, the balloon catheter was deflated. The scope was easily passed through the anastomosis. No complications were noted. The patient was taken to the recovery room in a satisfactory condition. Tim Carroll MD /[id number]
== END 2017-04-14 14:06 | disposition home or self-care (01) ==
LOC: JP.SDS 06:05
PROVIDERS: ATTEND Surgery
DX: K91.89 Other postprocedural complications and disorders of digestive system (principal); Z88.1 Allergy status to other antibiotic agents; Z88.8 Allergy status to other drugs, medicaments and biological substances; K21.9 Gastro-esophageal reflux disease without esophagitis; F32.9 Major depressive disorder, single episode, unspecified
CPT/HCPCS: 36415; 43249; 80053; J1642; J2250; J2704; J3010; J3411; J3420; J7030; J7120; J3490

== ENCOUNTER 2017-05-29 08:30 | Day surgery (SDC) | payer BC ==
[2017-05-29] MEDS: Sodium Chloride 0.9% 10 ML Syringe FLUSH PRN ×4 (08:55→15:02)
[2017-05-29] MEDS ORDERED: Lactated Ringers 1,000 ML IV SCH (09:00)
[2017-05-29] MEDS ORDERED: Cyanocobalamin (Vitamin B12) 1,000 MCG/ML SDV IM ONE (09:00)
[2017-05-29] MEDS ORDERED: Glycopyrrolate 0.2 MG/ML 2 ML SDV IVPUSH ONE (09:45)
[2017-05-29] MEDS ORDERED: MVI, Adult with Vitamin K 10 ML, Thiamine 100 MG, Chromium/Copper/Mang/Selen/Zn 1 ML in... IV ONE ×4 (10:00)
[2017-05-29] MEDS ORDERED: Midazolam 1 MG/ML 2 ML SDV ONE (12:38)
[2017-05-29] MEDS ORDERED: Propofol 200 MG/20 ML SDV ONE (12:38)
[2017-05-29] MEDS ORDERED: fentaNYL 100 MCG/2 ML SDV ONE (12:38)
[2017-05-29 14:47] VITALS: BP 152/74
--- NOTE | 2017-06-02 11:13 | OR ---
DATE OF PROCEDURE: 05/29/2017 PREOPERATIVE DIAGNOSIS: Probable stricture at esophagojejunostomy. POSTOPERATIVE DIAGNOSIS: Moderate stricture at the esophagojejunostomy. OPERATIVE PROCEDURE: Upper GI endoscopy with dilation of esophagojejunostomy (18082). ANESTHESIA: IV sedation. INDICATION FOR PROCEDURE: The patient once again presents with some symptoms of stricturing at her esophagojejunostomy. These have unfortunately become less frequent in terms of duration . The plan is to proceed with upper GI endoscopy with dilation as indicated. Potential risks including bleeding and perforation were discussed, and the patient wishes to proceed. DETAILS OF PROCEDURE: The patient was taken to the operating room and placed in a left lateral decubitus position. IV sedation was administered, after which the upper GI endoscope was passed orally through the length of the esophagus, and into the area of the esophagojejunostomy. This was noted to be moderately narrowed. The scope could not quite be passed through the area. There was minimal inflammation of the mucosa, however, the Bard gastrointestinal balloon catheter was then centered across the anastomosis, using fluoroscopic guidance and inflated to 45-Uzbek size. This was taken up to the level 3, i.e. full expansion of 45-mm dilator was completed. Upon removal of this dilator, the scope was easily passed through the anastomosis. No complications were noted and the scope was withdrawn. Procedure was then concluded. There were no evident complications. Tim Carroll MD /[id number]
== END 2017-05-29 15:03 | disposition home or self-care (01) ==
LOC: JP.SDS 08:30
PROVIDERS: ATTEND Surgery
DX: K91.89 Other postprocedural complications and disorders of digestive system (principal); E66.9 Obesity, unspecified; G47.33 Obstructive sleep apnea (adult) (pediatric); K21.9 Gastro-esophageal reflux disease without esophagitis; Z93.4 Other artificial openings of gastrointestinal tract status; Z88.8 Allergy status to other drugs, medicaments and biological substances
CPT/HCPCS: 36415; 43249; 80053; 82728; 83735; 84100; 85027; J1642; J2250; J2704; J3010; J3411; J3420; J7030; J7050; J7120; J3490

== ENCOUNTER 2017-07-15 07:47 | Day surgery (SDC) | payer BC ==
[2017-07-15] MEDS ORDERED: Lactated Ringers 1,000 ML IV ONE (08:00)
[2017-07-15] MEDS ORDERED: Glycopyrrolate 0.2 MG/ML 2 ML SDV IVPUSH ONE (08:45)
[2017-07-15] MEDS ORDERED: MVI, Adult with Vitamin K 10 ML, Thiamine 100 MG, Chromium/Copper/Mang/Selen/Zn 1 ML in... IV ONE ×4 (09:00)
[2017-07-15] MEDS ORDERED: Bupivacaine 0.5% 50 ML MDV ONE (09:26)
[2017-07-15] MEDS ORDERED: Lidocaine 1% with EPINEPHrine 1:100,000 50 ML MDV ONE (09:27)
[2017-07-15] MEDS ORDERED: Cyanocobalamin (Vitamin B12) 1,000 MCG/ML SDV IM ONE (09:30)
[2017-07-15] MEDS ORDERED: Carvedilol 6.25 MG Tab PO ONE (11:54)
[2017-07-15 12:01] VITALS: BP 168/102
--- NOTE | 2017-07-21 16:17 | OR ---
DATE OF PROCEDURE: 07/15/2017 PREOPERATIVE DIAGNOSES: 1. 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 2. Status Rivera catheter placement. POSTOPERATIVE DIAGNOSES: 1. Moderate stricture at esophagojejunostomy. 2. Status Rivera catheter placement. OPERATIVE PROCEDURES: 1. Upper GI endoscopy with dilation of esophagojejunostomy (29498). 2. Removal of double-lumen Rivera catheter located in the left subclavian area (90961). ANESTHESIA: Local plus IV sedation. INDICATIONS FOR PROCEDURE: The patient once again presents with symptoms suggestive of stricturing at esophagojejunostomy. The plan is to proceed with upper GI endoscopy with dilation as indicated. Potential risks including bleeding and perforation were discussed, and the patient wishes to proceed. Additionally, the patient has a longstanding Rivera catheter. She is now getting to the point where there is quite a bit of space between any needed intervention and would like to have the catheter removed. Potential risks of the procedure and primary bleeding were gone over and the patient, likewise, wishes to proceed. DETAILS OF PROCEDURE: The patient was taken to the operating room and placed in a left lateral decubitus position. IV sedation was administered, after which the upper GI endoscope was passed orally through the length of the esophagus and into the area of the esophagojejunostomy. This was moderately stenotic with the 1 cm scope not quite being able to be passed through the anastomosis. There was little in the way of mucosal inflammation. A Bard gastrointestinal balloon catheter was centered across the anastomosis and inflated to 36-Georgian size. This was held in position for 1 minute, after which the balloon catheter was deflated and withdrawn. The scope was then easily passed through the anastomosis and no complications were noted. The gastroscope was then withdrawn. The patient now placed in supine position. The upper left chest area was prepped and draped and the skin around the Rivera catheter exit site was anesthetized with 1% lidocaine. The catheter was then dissected free of its attachments to the fibrous capsule and once that was freed up, the catheter was then easily withdrawn. Pressure dressing was applied and the patient was taken to the recovery room in satisfactory condition. Tim Carroll MD /[id number]
== END 2017-07-15 12:20 | disposition home or self-care (01) ==
LOC: JP.SDS 07:47
PROVIDERS: ATTEND Surgery
DX: K91.89 Other postprocedural complications and disorders of digestive system (principal); Z45.2 Encounter for adjustment and management of vascular access device; E66.9 Obesity, unspecified; K21.9 Gastro-esophageal reflux disease without esophagitis; G47.33 Obstructive sleep apnea (adult) (pediatric)
CPT/HCPCS: 36415; 36589; 43249; 80053; 83735; 84100; 85027; A9270; J2250; J2704; J3010; J3411; J3420; J7120; J3490

== ENCOUNTER 2020-12-25 06:36 | Day surgery (SDC) | payer BC ==
[2020-12-25] MEDS ORDERED: Dextrose 5%-Lactated Ringers 1,000 ML IV SCH (07:30)
[2020-12-25] MEDS ORDERED: Midazolam 1 MG/ML 2 ML SDV ONE (07:34)
[2020-12-25] MEDS ORDERED: fentaNYL 100 MCG/2 ML SDV ONE (07:34)
[2020-12-25] MEDS ORDERED: Propofol 200 MG/20 ML SDV ONE ×2 (07:34→09:29)
[2020-12-25 08:59] LABS: HEMOGLOBIN A1C 4.8 % (4.5-6.2)
[2020-12-25 10:32] VITALS: BP 140/74; PULSE 56
--- NOTE | 2020-12-27 12:21 | OR ---
DATE OF PROCEDURE: 12/25/2020 SURGEON: Tim Carroll MD PREOPERATIVE DIAGNOSIS: History of colon polyps. POSTOPERATIVE DIAGNOSIS: Normal colonoscopic examination with no recurrent polyps. PROCEDURE PERFORMED: Flexible colonoscopy. ANESTHESIA: IV sedation. INDICATIONS FOR PROCEDURE: This is a 50-year-old female presenting with history of colonic polyps, for followup colonoscopy. Potential risks of the procedure including bleeding and perforation were discussed, and the patient wishes to proceed. DETAILS OF PROCEDURE: The patient was taken to the operating room and placed in a left lateral decubitus position. IV sedation was administered after which the initial digital rectal exam was performed and was unremarkable. Colonoscope was then passed into the rectum with retroflexion revealing uncomplicated hemorrhoidal columns. Scope was eventually passed to the level of the cecum. The prep was fair with a moderate amount of liquid stool present that obscured some areas of the mucosal surface regions larger than 2 or 3 mm with likely other than this identified to that level. There were no major abnormalities otherwise noted. There were no polyps or other signs of neoplasia. No areas of diverticular disease, and no colitis. The scope was then withdrawn, the above findings reconfirmed, and the procedure was then concluded. Recommendation would be to repeat the colonoscopy in 5 years given the personal history of colon polyps. Tim Carroll MD Job #: [id number]
== END 2020-12-25 10:34 | disposition home or self-care (01) ==
LOC: JP.SDS 06:36
PROVIDERS: ATTEND Surgery
DX: Z12.11 Encounter for screening for malignant neoplasm of colon (principal); K64.9 Unspecified hemorrhoids; F17.200 Nicotine dependence, unspecified, uncomplicated; K21.9 Gastro-esophageal reflux disease without esophagitis; Z86.010 Personal history of colon polyps; Z88.8 Allergy status to other drugs, medicaments and biological substances
CPT/HCPCS: 45378; 80053; 82306; 82525; 82607; 82728; 82746; 83036; 83550; 83735; 84425; 84590; 84630; 85027; J2250; J2704; J3010; J7121